=== PATIENT | male | born 1950 | race Caucasian/White ===

== ENCOUNTER 2019-08-11 12:01 | Inpatient (IN) | payer MEDICARE ==
[~2019-08-11] VITALS: Ht 180.3 cm; Wt 103.0 kg
[2019-08-11 12:05] VITALS: BP 116/79
--- NOTE | 2019-08-11 12:05 | NUR ---
ED Nurse Note: Pt brought in by ambulance c/o productive cough x 1 month. Pt states that his phlegm was green, but is now clear. Pt denies fever. A+Ox4, denies pain. Respirations even and unlabored on room air. Vitals stable as documented
[2019-08-11] MEDS ORDERED: Omnipaque-300 100ml vial INJ ONE (12:45)
--- NOTE | 2019-08-11 12:47 | Diagnostic Imaging Report ---
Indication: Dyspnea Comparison: None A single view chest radiograph was obtained. Findings: There is an abnormal density at the right lung base. This could be infiltrate or mass or loculated pleural fluid. Heart size is normal. Bones are unremarkable. IMPRESSION: Abnormal density at the right lung base. Further evaluation is recommended
--- NOTE | 2019-08-11 12:50 | NUR ---
ED Nurse Note: blood sent to lab
[2019-08-11 13:32] LABS: BASOPHILS % (AUTO) 0.7 % (0.0-2.0); EOSINOPHILS % (AUTO) 0.1 % (0.0-3.0); HEMATOCRIT 43.1 % (42.0-52.0); HEMOGLOBIN 14.3 G/DL (14.2-18.0); LYMPHOCYTES % (AUTO) 13.6 % (20.0-45.0); MEAN CORPUSCULAR VOLUME 93 FL (80-99); MONOCYTES % (AUTO) 7.2 % (1.0-10.0); NEUTROPHILS % (AUTO) 78.4 % (45.0-75.0); PLATELET COUNT 523 K/UL (150-450); RED BLOOD COUNT 4.62 M/UL (4.70-6.10); RED CELL DISTRIBUTION WIDTH 12.6 % (11.6-14.8); WHITE BLOOD COUNT 17.2 K/UL (4.8-10.8)
[2019-08-11 13:38] LABS: ANION GAP 13 mmol/L (5-15); BLOOD UREA NITROGEN 9 mg/dL (7-18); CALCIUM 9.2 MG/DL (8.5-10.1); CARBON DIOXIDE 29 MMOL/L (21-32); CHLORIDE 97 MMOL/L (98-107); CREATININE 0.7 MG/DL (0.55-1.30); POTASSIUM 4.5 MMOL/L (3.5-5.1); SODIUM 138 MMOL/L (136-145)
[2019-08-11 13:43] LABS: ALANINE AMINOTRANSFERASE 34 U/L (12-78); ALBUMIN 1.7 G/DL (3.4-5.0); ALBUMIN/GLOBULIN RATIO 0.3 (1.0-2.7); ALKALINE PHOSPHATASE 158 U/L (46-116); ASPARTATE AMINO TRANSFERASE 37 U/L (15-37); BILIRUBIN,TOTAL 0.4 MG/DL (0.2-1.0)
--- NOTE | 2019-08-11 13:51 | NUR ---
ED Nurse Note: Pt in radiology
--- NOTE | 2019-08-11 14:28 | Emergency Room Report ---
History of Present Illness General Chief Complaint: Upper Respiratory Illness Source: Patient (Paris Tejeda) Present Illness HPI 69 YO male presents to the ED c/o productive cough x 1 month with increased fatigue. He reports initially he had fevers and chills as well as his symptoms being much more severe. He reports fevers and chills resolved, and cough and fatigue improved only slightly. He reports hx tobacco use until the age of 37, when he then switched to smoking THC daily. He denies significant PMHX. other than mild gout which he has been attempting to control with dietary changes such as avoidance of ETOH. Pt. reports last physical exam was performed this past March by his primary care provider and was normal other than mild elevation in blood glucose and uric acid. He denies chest pain, swelling of the lower extremities, dizziness, syncope or MEYER. He reports frequently coughing up green thick sputum. Pt. reports pain with lying on his right side. (Paris Tejeda) Allergies: Coded Allergies: No Known Allergies (Unverified , 08/11/19) Patient History Past Medical History: see triage record Past Surgical History: none Pertinent Family History: none Social History: Reports: smoking Reviewed Nursing Documentation: PMH: Agreed; PSxH: Agreed (Paris Tejeda) Nursing Documentation-PMH Past Medical History: No Stated History (Paris Tejeda) Review of Systems All Other Systems: negative except mentioned in HPI (Paris Tejeda) Physical Exam Vital Signs Date Time Temp Pulse Resp B/P (MAP) Pulse Ox O2 Delivery O2 Flow Rate FiO2 08/11/19 11:56 98.4 81 18 116/79 (91) 98 Room Air Sp02 EP Interpretation: reviewed, normal General Appearance: no apparent distress, alert, GCS 15, non-toxic Head: normocephalic, atraumatic Eyes: bilateral eye normal inspection, bilateral eye PERRL ENT: hearing grossly normal, normal voice Neck: full range of motion Respiratory: chest non-tender, lungs clear, normal breath sounds, no respiratory distress, no accessory muscle use, no wheezing, speaking full sentences Cardiovascular #1: regular rate, rhythm Gastrointestinal: non tender, soft Neurologic: alert, motor strength/tone normal, oriented x3, sensory intact, responsive, speech normal Psychiatric: judgement/insight normal Skin: no rash Lymphatic: no adenopathy (Paris Tejeda) Medical Decision Making PA Attestation Dr. Ward is my supervising Physician whom patient management has been discussed with. (Paris Tejeda) Medicare Attestation Please note that the patient was also seen and evaluated by myself I do agree with the initial exam history and work-up Patient's x-ray had shown abnormal findings on CT imaging has been followed Patient will require further inpatient evaluation and care And further differentials for the findings on the CT (Kishore Dee DO) Diagnostic Impression: Primary Impression: Pneumonia Qualified Codes: J18.9 - Pneumonia, unspecified organism Additional Impression: Pulmonary mass ER Course 69 YO male presents to the ED c/o productive cough x 1 month with increased fatigue. He reports initially he had fevers and chills as well as his symptoms being much more severe. He reports fevers and chills resolved, and cough and fatigue improved only slightly. He reports hx tobacco use until the age of 37, when he then switched to smoking THC daily. He denies significant PMHX. other than mild gout which he has been attempting to control with dietary changes such as avoidance of ETOH. Pt. reports last physical exam was performed this past March by his primary care provider and was normal other than mild elevation in blood glucose and uric acid. He denies chest pain, swelling of the lower extremities, dizziness, syncope or MEYER. He reports frequently coughing up green thick sputum. Pt. reports pain with lying on his right side. Ddx considered but are not limited to URI, pneumonia, PE, strep pharyngitis, CHF , oncogenic etiology. Vital signs: Pt. is afebrile, the remaining VS are WNL H&PE are most consistent with URI Symptoms- no meningeal signs, oropharynx is not involved. ORDERS: -CBC: WBC's elevated at 17.5 - CMP: Unremarkable - BNP: elevated 270 - Troponin: 0.00 WNL -CK-MB: WNL - CK: WNL -Lipase: WNL -UA: WNL -Blood Cultures: Pending - Lactic Acid: WNL -CXR; abnormal RLL mass -CT Chest w. Contrast: Heterogeneous 8 cm mass at the right lung base with adjacent 4 cm and 5 cm mass lesions. There is centralized fluid with a few bubbles of air. The findings probably represent multiloculated/septated lung abscess; differential diagnosis is necrotic tumor. Please correlate clinically. Trace right pleural effusion with some loculation. Pulmonary emphysema/COPD " --- Per official radiology report- Please see report for specific details. ED INTERVENTIONS: -Zosyn IVPB - DISPOSITION: at this time pt. will be admitted to Dr. Xie for PNA/ Pulmonary mass. Dr. Xie agreed to admit the pt. and to continue pt. care management. (Paris Tejeda) EKG Diagnostic Results EP Interpretation: Dr. Ward Rate: normal - 81 Rhythm: NSR ST Segments: no acute changes ASA given to the pt in ED: No PA Scribe Text This Interpretation was scribed by RON Tejeda. (Paris Tejeda) Chest X-Ray Diagnostic Results Chest X-Ray Diagnostic Results : Chest X-Ray Ordered: Yes # of Views/Limited/Complete: 1 View Indication: Shortness of Breath PA Xray: Interpretation reviewed, by supervising MD, and agrees with findings. Interpretation: no effusion, no pneumothorax Impression: Other - abnormal: RLL Mass (Paris Tejeda) CT/MRI/US Diagnostic Results CT/MRI/US Diagnostic Results : Imaging Test Ordered: CT Chest With IV Contrast Impression " Heterogeneous 8 cm mass at the right lung base with adjacent 4 cm and 5 cm mass lesions. There is centralized fluid with a few bubbles of air. The findings probably represent multiloculated/septated lung abscess; differential diagnosis is necrotic tumor. Please correlate clinically. Trace right pleural effusion with some loculation. Pulmonary emphysema/COPD " --- Per official radiology report- Please see report for specific details. (Paris Tejeda) Last Vital Signs Date Time Temp Pulse Resp B/P (MAP) Pulse Ox O2 Delivery O2 Flow Rate FiO2 08/11/19 12:05 98.4 80 18 116/79 98 Room Air (Paris Tejeda) Disposition: ADMITTED INPATIENT Condition: Serious Paris Tejeda Aug 11, 2019 14:28 Kishore Dee DO Aug 11, 2019 15:56
[2019-08-11 14:47] LABS: BILIRUBIN, URINE NEGATIVE (NEGATIVE); COLOR,URINE PALE YELLOW; GLUCOSE, URINE (UA) NEGATIVE (NEGATIVE); KETONES,URINE NEGATIVE (NEGATIVE); LEUKOCYTE ESTERASE ,URINE NEGATIVE (NEGATIVE); NITRITE,URINE NEGATIVE (NEGATIVE); PH,URINE 7 (4.5-8.0); PROTEIN,URINE NEGATIVE (NEGATIVE); UROBILINOGEN,URINE NORMAL MG/DL (0.0-1.0)
[2019-08-11 14:48] LABS: APPEARANCE,URINE CLEAR
[2019-08-11 15:00] VITALS: BP 124/74
[2019-08-11] MEDS ORDERED: Piperacillin/Tazobactam 3.375 GM in NS 110 ML IVPB ONE (15:15)
--- NOTE | 2019-08-11 15:24 | Diagnostic Imaging Report ---
Indication: Abnormal chest x-ray. Technique: Continuous helical transaxial imaging of the chest was obtained from the thoracic inlet to the upper abdomen after intravenous nonionic contrast administration. Coronal 2-D reformats were also obtained. Automatic Exposure Control was utilized. Total Dose length Product (DLP): [address] Dose Index Volume (CTDIvol): 150.6 mGy Comparison: none Findings: There is a heterogeneous, partially fluid-filled mass measuring 8 cm at the right lung base corresponding to the radiographic density seen earlier. There is the suggestion of multiple septations within the mass and a few bubbles of air suggesting multiloculated lung abscess. Trace right pleural fluid demonstrated posteriorly. The main collection measures about 8 cm. There are 2 additional collections in the posterior sulcus measuring 4 cm x 5 cm respectively. Differential diagnosis is necrotic tumor. Please correlate clinically. Small focus of loculated fluid also noted superiorly in within the minor fissure (fissural fluid). There is no consolidation. The remainder of the lungs are clear. There is hyperlucency in the lungs bilaterally especially in the upper lung gonzalez consistent with COPD and emphysema. There are small lymph nodes within the mediastinum nonspecific. The axilla appear clear. The heart, aorta and pulmonary artery appear unremarkable. Hiatal hernia is noted. The visualized part of the upper abdomen is unremarkable. IMPRESSION: Heterogeneous 8 cm mass at the right lung base with adjacent 4 cm and 5 cm mass lesions. There is centralized fluid with a few bubbles of air. The findings probably represent multiloculated/septated lung abscess; differential diagnosis is necrotic tumor. Please correlate clinically. Trace right pleural effusion with some loculation. Pulmonary emphysema/COPD The CT scanner at [facility] is accredited by the [employer] and the scans are performed using dose optimization techniques as appropriate to a performed exam including Automatic Exposure control.
[2019-08-11 15:53] LABS: CKMB 0.4 NG/ML (0.0-3.6)
[2019-08-11 17:15] VITALS: BP 130/73
--- NOTE | 2019-08-11 18:19 | NUR ---
ED Nurse Note: Pt sitting up in bed eating dinner.
--- NOTE | 2019-08-11 18:35 | NUR ---
ED Nurse Note: Report given to Min, RN in 2E.
--- NOTE | 2019-08-11 18:55 | NUR ---
ED Nurse Note: Pt transferred safely to 2E on monitor.
--- NOTE | 2019-08-11 19:44 | NUR ---
HAND-OFF: Report given to Veto MCLEAN. Pt remains stable.
--- NOTE | 2019-08-11 19:45 | NUR ---
NURSE NOTES: Received report from Faby Smith RN at [facility]. Pt is a new admission. NO s.s of acute distress noted. VSS. Belongings list verifierd any signed by both nurses. Placed on alarm security or surveillance monitor. Pt oriented on the unit. Addendum: 08/12/19 at 0020 by MONICA ARROYO RN Pt denies any home meds. Has a hx of arthritis only per pt.
--- NOTE | 2019-08-11 20:00 | NUR ---
NURSE NOTES: Called and notified MD Max about new admission. MD orders noted. Will follow new orders.
[2019-08-11 21:57] VITALS: BP 128/69
[2019-08-11] MEDS: Piperacillin/Tazobactam 3.375 GM in NS 110 ML IVPB SCH (22:28)
[2019-08-12] VITALS: BP 116/72
[2019-08-12] MEDS: Acetaminophen 500mg (ES) tab ORAL PRN ×2 (00:12→22:39)
[2019-08-12] MEDS: Vancomycin 1.25gm/NS Premix q24h IVPB SCH ×3 (02:24→17:52)
[2019-08-12 04:00] VITALS: BP 106/66
[2019-08-12] MEDS: Piperacillin/Tazobactam 3.375 GM in NS 110 ML IVPB SCH ×3 (05:30→21:30)
--- NOTE | 2019-08-12 06:44 | Consultation ---
History of Present Illness General Chief Complaint: Upper Respiratory Illness Present Illness Allergies: Coded Allergies: No Known Allergies (Unverified , 08/11/19) Patient History Healthcare decision maker Resuscitation status Full Code Advanced Directive on File Physical Exam Last 24 Hour Vital Signs Date Time Temp Pulse Resp B/P (MAP) Pulse Ox O2 Delivery O2 Flow Rate FiO2 08/12/19 04:00 97.6 74 18 106/66 (79) 97 08/12/19 04:00 85 08/12/19 00:00 98.0 81 16 116/72 (87) 93 08/12/19 00:00 86 08/11/19 21:57 98.6 88 18 128/69 (88) 92 08/11/19 20:10 Room Air 08/11/19 20:00 85 08/11/19 18:55 97.9 81 18 128/71 96 Room Air 08/11/19 17:15 98.0 84 18 130/73 98 Room Air 08/11/19 15:00 98.2 89 18 124/74 98 Room Air 08/11/19 12:05 98.4 80 18 116/79 98 Room Air 08/11/19 12:05 80 18 Room Air 08/11/19 11:56 98.4 81 18 116/79 (91) 98 Room Air Laboratory Tests Test 08/11/19 12:50 08/11/19 14:25 White Blood Count 17.2 K/UL (4.8-10.8) H Red Blood Count 4.62 M/UL (4.70-6.10) L Hemoglobin 14.3 G/DL (14.2-18.0) Hematocrit 43.1 % (42.0-52.0) Mean Corpuscular Volume 93 FL (80-99) Mean Corpuscular Hemoglobin 30.9 PG (27.0-31.0) Mean Corpuscular Hemoglobin Concent 33.2 G/DL (32.0-36.0) Red Cell Distribution Width 12.6 % (11.6-14.8) Platelet Count 523 K/UL (150-450) H Mean Platelet Volume 6.0 FL (6.5-10.1) L Neutrophils (%) (Auto) 78.4 % (45.0-75.0) H Lymphocytes (%) (Auto) 13.6 % (20.0-45.0) L Monocytes (%) (Auto) 7.2 % (1.0-10.0) Eosinophils (%) (Auto) 0.1 % (0.0-3.0) Basophils (%) (Auto) 0.7 % (0.0-2.0) Sodium Level 138 MMOL/L (136-145) Potassium Level 4.5 MMOL/L (3.5-5.1) Chloride Level 97 MMOL/L (98-107) L Carbon Dioxide Level 29 MMOL/L (21-32) Anion Gap 13 mmol/L (5-15) Blood Urea Nitrogen 9 mg/dL (7-18) Creatinine 0.7 MG/DL (0.55-1.30) Estimat Glomerular Filtration Rate > 60 mL/min (>60) Glucose Level 102 MG/DL (74-106) Calcium Level 9.2 MG/DL (8.5-10.1) Total Bilirubin 0.4 MG/DL (0.2-1.0) Aspartate Amino Transf (AST/SGOT) 37 U/L (15-37) Alanine Aminotransferase (ALT/SGPT) 34 U/L (12-78) Alkaline Phosphatase 158 U/L (46-116) H Total Creatine Kinase 49 U/L (26-308) Creatine Kinase MB 0.4 NG/ML (0.0-3.6) Creatine Kinase MB Relative Index 0.8 Troponin I 0.000 ng/mL (0.000-0.056) Pro-B-Type Natriuretic Peptide 270 pg/mL (0-125) H Total Protein 8.1 G/DL (6.4-8.2) Albumin 1.7 G/DL (3.4-5.0) L Globulin 6.4 g/dL Albumin/Globulin Ratio 0.3 (1.0-2.7) L Lipase 155 U/L (73-393) Urine Color Pale yellow Urine Appearance Clear Urine pH 7 (4.5-8.0) Urine Specific Premont 1.010 (1.005-1.035) Urine Protein Negative (NEGATIVE) Urine Glucose (UA) Negative (NEGATIVE) Urine Ketones Negative (NEGATIVE) Urine Blood Negative (NEGATIVE) Urine Nitrite Negative (NEGATIVE) Urine Bilirubin Negative (NEGATIVE) Urine Urobilinogen Normal MG/DL (0.0-1.0) Urine Leukocyte Esterase Negative (NEGATIVE) Lactic Acid Level 1.10 mmol/L (0.4-2.0) Height (Feet): 5 Height (Inches): 11.00 Weight (Pounds): 227 Medications Current Medications Medications (Trade) Dose Ordered Sig/Yo Route PRN Reason Start Time Stop Time Status Last Admin Dose Admin Acetaminophen (Tylenol) 500 mg Q4H PRN ORAL Mild Pain/Temp > 100.5 08/11/19 20:30 09/10/19 20:29 08/12/19 00:12 Piperacillin Sod/ Tazobactam Sod 3.375 gm/Sodium Chloride 110 ml @ 27.5 mls/hr EVERY 8 HOURS IVPB 08/11/19 22:00 08/16/19 21:59 08/12/19 05:30 Vancomycin HCl (Vanco rx to dose) 1 ea DAILY PRN MISC Per rx protocol 08/11/19 21:00 09/10/19 20:59 Vancomycin/Sodium Chloride 275 ml @ 183.333 mls/hr Q8H IVPB 08/12/19 02:00 08/17/19 01:59 08/12/19 02:24 Assessment/Plan Assessment/Plan: Hematology/Oncology Consultation Chief Complaint: Upper Respiratory Illness RFC: Lung abscess v mass REQ MD: Cecilio Xie DOS: 08/12/19 HPI 69 YO male presents to the ED c/o productive cough x 1 month with increased fatigue. He reports initially he had fevers and chills as well as his symptoms being much more severe. He reports fevers and chills resolved, and cough and fatigue improved only slightly. He reports hx tobacco use until the age of 37, when he then switched to smoking THC daily. He denies significant PMHX. other than mild gout which he has been attempting to control with dietary changes such as avoidance of ETOH. Pt. reports last physical exam was performed this past March by his primary care provider and was normal other than mild elevation in blood glucose and uric acid. He denies chest pain, swelling of the lower extremities, dizziness, syncope or MEYER. He reports frequently coughing up green thick sputum. Pt. reports pain with lying on his right side. On presentation, noted to have a lung abscess v mass, and oncology was consulted for eval and rx, have discussed the case with Miller Flores in the am Allergies: Coded Allergies: No Known Allergies (Unverified , 08/11/19) Patient History Past Medical History: see triage record Past Surgical History: none Pertinent Family History: none Social History: Reports: smoking++ stopped smoking in the past, also has been sober, used to be an alcoholic Reviewed Nursing Documentation: PMH: Agreed; PSxH: Agreed Nursing Documentation-PMH Past Medical History: No Stated History Review of Systems All Other Systems: negative except mentioned in HPI Physical Exam General: no apparent distress, alert, GCS 15, non-toxic Heent: normocephalic, atraumatic hearing grossly normal, normal voice Neck: full range of motion Resp: chest non-tender, lungs clear, normal breath sounds, no respiratory distress Cardiovascular: regular rate, rhythm, no mgr Gastrointestinal: non tender, soft Neurologic: alert, motor strength/tone normal, oriented x3, sensory intact, responsive, speech normal Psychiatric: judgement/insight normal Skin: no rash Lymphatic: no adenopathy Labs: noted Imaging: reviewed Assessment and Recs: # Heterogeneous 8 cm mass at the right lung base with adjacent 4 cm and 5 cm mass lesions. There is centralized fluid with a few bubbles of air. The findings probably represent multiloculated/septated lung abscess; differential diagnosis is necrotic tumor. Please correlate clinically. Trace right pleural effusion with some loculation. --> is on broad spectrum abx as per id --> id recs appreciated --> will need to obtain potential ct surg --> may need abscess drainage # Leukocytosis likely due to lung abscess --> peripheral smear is noted --> no bleeding report --> monitor for stress reaction --> continue abx per id # Thrombocytosis likely reactive process --> smear noted # Protein caloric malnutrition --> alb is low, replete with ensure, nutrition recs as needed # Pulmonary emphysema/COPD " --- Per official radiology report- Please see report for specific details. --> as per pulm # Pneumonia --> per id abx Appreciate consultation and dw Jarret Quintero MD Aug 12, 2019 06:44
[2019-08-12] MEDS ORDERED: Omnipaque-300 100ml vial INJ PRN (06:45)
--- NOTE | 2019-08-12 07:20 | NUR ---
HAND-OFF: Report given to Cindy Cox RN.
[2019-08-12 07:47] LABS: BASOPHILS % (AUTO) 0.9 % (0.0-2.0); EOSINOPHILS % (AUTO) 0.6 % (0.0-3.0); HEMATOCRIT 38.7 % (42.0-52.0); HEMOGLOBIN 12.7 G/DL (14.2-18.0); LYMPHOCYTES % (AUTO) 15.3 % (20.0-45.0); MEAN CORPUSCULAR VOLUME 93 FL (80-99); MONOCYTES % (AUTO) 6.8 % (1.0-10.0); NEUTROPHILS % (AUTO) 76.4 % (45.0-75.0); PLATELET COUNT 503 K/UL (150-450); RED BLOOD COUNT 4.15 M/UL (4.70-6.10); RED CELL DISTRIBUTION WIDTH 12.3 % (11.6-14.8)
[2019-08-12 08:00] VITALS: BP 118/71
[2019-08-12 08:03] LABS: ALANINE AMINOTRANSFERASE 35 U/L (12-78); ALBUMIN 1.3 G/DL (3.4-5.0); ALBUMIN/GLOBULIN RATIO 0.2 (1.0-2.7); ALKALINE PHOSPHATASE 131 U/L (46-116); ANION GAP 10 mmol/L (5-15); ASPARTATE AMINO TRANSFERASE 35 U/L (15-37); BILIRUBIN,TOTAL 0.3 MG/DL (0.2-1.0); BLOOD UREA NITROGEN 7 mg/dL (7-18); CALCIUM 8.7 MG/DL (8.5-10.1); CARBON DIOXIDE 27 MMOL/L (21-32); CHLORIDE 102 MMOL/L (98-107); CREATININE 0.7 MG/DL (0.55-1.30); POTASSIUM 4.1 MMOL/L (3.5-5.1); SODIUM 139 MMOL/L (136-145)
--- NOTE | 2019-08-12 08:34 | NUR ---
NURSE NOTES: Received patient from Sandra Coy. Patient is awake and alert. No complain of pain or discomfort at this time. Patient NPO for CT abdomen today to r/o abdominal abscess. Call emanuel within patients reach will follow.
--- NOTE | 2019-08-12 10:30 | Diagnostic Imaging Report ---
INDICATION: Abdominal pain TECHNIQUE: Continuous helical transaxial imaging of the abdomen and pelvis was obtained from the lung bases to the pubic symphysis during intravenous contrast administration. Coronal 2-D reformats were also obtained. Study obtained in a Siemens sensation [address] Automatic Exposure Control was utilized. Total Dose length Product (DLP): 688.[address] Dose Index Volume (CTDIvol): 12.5 mGy COMPARISON: None FINDINGS: Lungs: Please refer to the recently dictated CT chest 08/11/2019.. Liver: Unremarkable Gallbladder/biliary system: There is a suggestion of gallbladder stones versus sludge in the dependent part of the gallbladder.. Spleen: Unremarkable Pancreas: Unremarkable Kidneys/Bladder: Punctate nonobstructive stone initiated within the left kidney. Suggestion of a small right renal cyst in the lower pole noted. There is no hydronephrosis. Urinary bladder is unremarkable.. Adrenal glands: Unremarkable Aorta/IVC: Mild calcification of aorta and iliac arteries noted. There is no aneurysm. Bowel: There is no evidence of bowel obstruction. Appendix is normal. Peritoneum: There is no free fluid. Bones: There is narrowing of intervertebral discs and accompanying endplate osteophyte formation. Hypertrophied facet joints also demonstrated. IMPRESSION: Tiny nonobstructive stone in left kidney. Suggestion of sludge versus small stones in the gallbladder. Hiatal hernia Degenerative changes of the spine The CT scanner at [facility] is accredited by the [employer] and the scans are performed using dose optimization techniques as appropriate to a performed exam including Automatic Exposure control.
[2019-08-12 12:00] VITALS: BP 116/67
[2019-08-12] MEDS ORDERED: Lidocaine 1% Plain 30 ml INJ PRN (14:15)
[2019-08-12 16:00] VITALS: BP 119/63
--- NOTE | 2019-08-12 16:00 | Consultation ---
DATE OF CONSULTATION: 08/12/2019 INFECTIOUS DISEASE CONSULTATION CONSULTING PHYSICIAN: Emre Moura M.D. PRIMARY ATTENDING: Kishore Max M.D. REASON FOR CONSULT: Lung abscess. HISTORY OF PRESENT ILLNESS: This is a 69-year-old white male admitted yesterday from home complaining of productive cough for 1 month. The patient states that around 1 month ago, he had strained ankle and he stayed on the bed for couple of days because he could not move. After that, he got some pneumonia or cold and still has productive cough. He is also complaining of weakness and weight loss of 20 pounds in the last month. He states that he may have low-grade fever at home. ALLERGIES: No known drug allergies. MEDICATIONS: Getting vancomycin and Zosyn and Tylenol. PAST MEDICAL HISTORY: Has some arthritis. Had mild gout. SOCIAL HISTORY: Ex-smoker. Now smokes cannabis. Quit drinking 5 months ago. He is single, has no child. REVIEW OF SYSTEMS: As per history of present illness. Has weakness, productive cough, weight loss. No chest pain. No nausea. No vomiting. No problem passing urine. PHYSICAL EXAMINATION: VITAL SIGNS: Temperature 98.2, pulse 76, blood pressure 116/67. GENERAL APPEARANCE: No acute distress. Well developed. HEAD AND NECK: Has denture and remaining teeth are capped. LUNGS: Clear. ABDOMEN: Soft, nontender. HEART: Normal rate. EXTREMITIES: Has no edema. NEUROLOGIC: Awake, alert, oriented x3. LABORATORY AND DIAGNOSTIC DATA: Sodium 139, potassium 4.1, chloride 102, bicarbonate 27, BUN 7, creatinine 0.7, glucose is 121. WBC at the time of admission was 17.2, currently is 15 K, hemoglobin 12.7, hematocrit 38.7, platelets is 503. UA was negative. Chest CT showed evidence of COPD, emphysema, and heterogeneous 8 cm mass at the base of the right lung with centralized fluid, few bubbles of air probably multiloculated septated lung abscess. Differential diagnosis is necrotic tumour, trace mild pleural effusion. The patient had CT scan of the abdomen and pelvis that showed nonobstructive punctuated stone in the left kidney. No hydronephrosis. IMPRESSION: Lung abscess. The patient also had COPD, emphysema. He is an ex-smoker. Has thrombocytosis. RECOMMENDATION: Continue Zosyn and vancomycin. Sputum culture was ordered. We will suggest CT-guided drainage of abscess. We will follow up the cultures. At the end of my exam, I thank Dr. Max for involving me in the care of this patient. Emre Moura M.D. DR: REJI JOB#: [id number] CC: MONIKA
--- NOTE | 2019-08-12 19:00 | NUR ---
NURSE NOTES: Received report from VINAY White. Patient is awake, lying in semi maradiaga's; resting comfortably. A/Ox4. Denies pain at this time. Checked IV site and flushed. No erythema, bleeding or infiltration noted. Bed at lowest position, brakes on, siderailsx3. Call light within reach. Will continue to monitor.
--- NOTE | 2019-08-12 19:51 | NUR ---
HAND-OFF: Report given to Sandra Marin. Plan of care endorsed.
[2019-08-12 20:00] VITALS: BP 102/63
--- NOTE | 2019-08-12 21:15 | Consultation ---
DATE OF CONSULTATION: 08/12/2019 PULMONARY CONSULTATION CONSULTING PHYSICIAN: Kun Park M.D. HISTORY OF PRESENT ILLNESS: This is a 69-year-old male who came to the hospital with cough and shortness of breath. The patient reported fevers as well which is now resolved. He has a previous history of tobacco use and admits to current marijuana use. He reports previous history of gout. The patient was seen and admitted to the hospital. He also reports cough with phlegm production. The patient has been seen by Infectious Disease specialist and a diagnosis of lung abscess has been obtained. The patient has been started on Zosyn and vancomycin. PAST MEDICAL HISTORY: Notable for gout, ex-smoker, possible underlying COPD, has been an alcohol user in the past as well. REVIEW OF SYSTEMS: He denies any headache, hematemesis, melena, hematochezia, night sweats, or weight loss. PHYSICAL EXAMINATION: GENERAL: Reveals a 69-year-old male. HEENT: Unremarkable. LUNGS: Clear breath sounds bilaterally. ABDOMEN: Soft. There is no edema. LABORATORY AND DIAGNOSTIC DATA: Lab testing is notable for white count of 15,000, hemoglobin 12.7, and platelet count is 500,000. Chemistries are normal. Urinalysis is negative. Imaging studies, a chest CT was obtained, which has shown multiloculated right lung abscess. There is also evidence for COPD. The patient underwent abdomen and pelvis CT, which was negative. X-ray of chest confirmed the abnormality seen on the right lung base. IMPRESSION: 1. Right lung abscess, suspect due to poor oral hygiene/dental caries. 2. COPD. DISCUSSION: Agree with the use of broad-spectrum antibiotics. Agree with a consideration for a CT-guided biopsy as per ID. We will follow as court recording monitor. Kun Park M.D. DR: KATARZYNA JOB#: [id number] CC:
--- NOTE | 2019-08-12 22:20 | NUR ---
NURSE NOTES: Seen and examined by Dr. Fox, no new orders at this time.
[2019-08-13] VITALS (20 sets, daily range): BP systolic 101–137; BP diastolic 61–91
--- NOTE | 2019-08-13 | History and Physical Report ---
DATE OF ADMISSION: 08/11/2019 HISTORY OF PRESENT ILLNESS: The patient is admitted for pneumonia and dyspnea. The patient comes in because of shortness of breath, possible lung abscess/mass. Also, leukocytosis. The patient had also weakness and presyncopal episode, productive cough, greenish in color, shortness of breath for about a month off and on. The patient was admitted for pneumonia as well as dyspnea, rule out lung abscess. The patient denies chest pain. Denies nausea, vomiting, or diarrhea. Denies heartburn. Denies orthopnea. PAST MEDICAL HISTORY: GERD. PAST SURGICAL HISTORY: Tonsillectomy. ALLERGIES: No known allergies. SOCIAL HISTORY: Denies history of alcohol abuse. Does have history of marijuana use. Does have history of smoking. REVIEW OF SYSTEMS: HEENT: Denies headaches. RESPIRATORY: Reports shortness of breath. Does have productive cough for about a month. Denies wheezing. CARDIOVASCULAR: Denies chest pain. No orthopnea. GASTROINTESTINAL: Denies nausea, vomiting, or diarrhea. EXTREMITIES: Denies pain. CENTRAL NERVOUS SYSTEM: Denies any change in speech pattern, but does have presyncopal episode and weakness, however, no syncope. PHYSICAL EXAMINATION: VITAL SIGNS: Temperature is 98, pulse is 86, blood pressure 116/72. HEENT: PERRLA. NECK: Supple. No lymphadenopathy. CHEST: Clear to auscultation. CARDIOVASCULAR: Regular rate and rhythm. No murmurs or extra sounds. GASTROINTESTINAL: Soft, nontender, nondistended. No organomegaly. EXTREMITIES: No edema. Moves all four extremities. Sensory intact to light touch. Reflexes equal on both sides. Chest x-ray shows possible lung abscess versus mass. LABORATORY DATA: WBC of 17.3, hemoglobin 14.3, platelets 523. Sodium 138, potassium 4.5, BUN of 9, creatinine 0.7, glucose of 102. ASSESSMENT AND PLAN: Lung abscess versus mass versus pneumonia, leukocytosis, shortness of breath. I have asked basically Dr. Randy Fox, Dr. Jarret Quintanilla, Dr. Kun Park, and Dr. Emre Moura for the management of above-mentioned diagnoses, abnormalities, and symptoms. Dr. Fox has been consulted in case surgical intervention needs to be done for this finding on the chest x-ray. Ali Aylin Max DR: MAKENZIE JOB#: [id number] CC:
--- NOTE | 2019-08-13 | NUR ---
NURSE NOTES: Patient was placed on NPO.
[2019-08-13] MEDS: Vancomycin 1.25gm/NS Premix q24h IVPB SCH ×3 (02:05→18:37)
[2019-08-13] MEDS: Piperacillin/Tazobactam 3.375 GM in NS 110 ML IVPB SCH ×3 (05:22→21:00)
--- NOTE | 2019-08-13 07:00 | NUR ---
HAND-OFF: Report given to VINAY White. Plan of care endorsed.
--- NOTE | 2019-08-13 07:44 | NUR ---
NURSE NOTES: Received patient from Sandra Marin. Patient is awake and alert laying comfortably in bed. No complain of pain or discomfort. No complain of pain or discomfort. Patient NPO for Ct drainage today. Fall precautions in place. Encouraged use of call emanuel that is within the patients reach. will follow.
[2019-08-13] MEDS ORDERED: D5NS 1,000 ML IV SCH (08:15)
[2019-08-13 09:26] LABS: INR 1.1 (0.9-1.1)
--- NOTE | 2019-08-13 10:31 | General Progress Note ---
Assessment/Plan Problem List: (1) Pneumonia ICD Codes: J18.9 - Pneumonia, unspecified organism SNOMED: [id number] Qualifiers: Qualified Codes: J18.9 - Pneumonia, unspecified organism (2) Pulmonary mass ICD Codes: R91.8 - Other nonspecific abnormal finding of lung field SNOMED: 991652443 Status: progressing Assessment/Plan: afebrile no sob lung mass pna abx per id continue iv abx will discuss w bilingual sales consultant re w/u lung mass Subjective ROS Limited/Unobtainable: Yes Allergies: Coded Allergies: No Known Allergies (Unverified , 08/11/19) Objective Last 24 Hour Vital Signs Date Time Temp Pulse Resp B/P (MAP) Pulse Ox O2 Delivery O2 Flow Rate FiO2 08/13/19 08:00 98.4 72 18 124/74 (91) 94 08/13/19 04:00 72 08/13/19 04:00 97.4 66 18 103/65 (78) 96 08/13/19 00:00 97.5 60 16 101/61 (74) 95 08/12/19 23:09 97.9 08/12/19 21:00 Room Air 08/12/19 20:00 97.7 56 16 102/63 (76) 97 08/12/19 20:00 78 08/12/19 16:00 97.9 76 20 119/63 (81) 95 08/12/19 16:00 77 08/12/19 12:00 98.2 76 20 116/67 (83) 93 08/12/19 12:00 75 Intake and Output 08/12/19 08/13/19 19:00 07:00 Intake Total 740 ml Output Total 1400 ml 2100 ml Balance -660 ml -2100 ml Intake Oral 740 ml Output Urine Total 1400 ml 2100 ml Stool Total 0 ml # Bowel Movements 1 Laboratory Tests 08/13/19 00:50: Vancomycin Level Trough 13.8H 08/13/19 08:15: Prothrombin Time 12.0H, Prothromb Time International Ratio 1.1, Activated Partial Thromboplast Time 32 Height (Feet): 5 Height (Inches): 11.00 Weight (Pounds): 227 Neck: supple Respiratory/Chest: lungs clear Abdomen: soft Kishore Max MD Aug 13, 2019 10:31
--- NOTE | 2019-08-13 10:44 | Pulmonology Progress Note ---
Assessment/Plan Assessment/Plan IMPRESSION: 1. Right lung abscess, suspect due to poor oral hygiene/dental caries. 2. COPD. DISCUSSION: Agree with the use of broad-spectrum antibiotics. Agree with a consideration for a CT-guided biopsy as per ID. Discussed with radiologist. I will follow as project systems engineer. Kun Park M.D. Subjective Interval Events: None new Constitutional: Reports: no symptoms HEENT: Repors: no symptoms Respiratory: Reports: no symptoms Cardiovascular: Reports: no symptoms Gastrointestinal/Abdominal: Reports: no symptoms Allergies: Coded Allergies: No Known Allergies (Unverified , 08/11/19) Objective Last 24 Hour Vital Signs Date Time Temp Pulse Resp B/P (MAP) Pulse Ox O2 Delivery O2 Flow Rate FiO2 08/13/19 08:00 98.4 72 18 124/74 (91) 94 08/13/19 04:00 72 08/13/19 04:00 97.4 66 18 103/65 (78) 96 08/13/19 00:00 97.5 60 16 101/61 (74) 95 08/12/19 23:09 97.9 08/12/19 21:00 Room Air 08/12/19 20:00 97.7 56 16 102/63 (76) 97 08/12/19 20:00 78 08/12/19 16:00 97.9 76 20 119/63 (81) 95 08/12/19 16:00 77 08/12/19 12:00 98.2 76 20 116/67 (83) 93 08/12/19 12:00 75 Intake and Output 08/12/19 08/13/19 19:00 07:00 Intake Total 740 ml Output Total 1400 ml 2100 ml Balance -660 ml -2100 ml Intake Oral 740 ml Output Urine Total 1400 ml 2100 ml Stool Total 0 ml # Bowel Movements 1 General Appearance: no acute distress HEENT: normocephalic Respiratory/Chest: chest wall non-tender, lungs clear Cardiovascular: normal peripheral pulses Abdomen: normal bowel sounds Microbiology Date/Time Source Procedure Growth Status 08/11/19 14:25 Blood Blood Culture - Preliminary NO GROWTH AFTER 24 HOURS Resulted 08/11/19 14:10 Blood Blood Culture - Preliminary NO GROWTH AFTER 24 HOURS Resulted 08/12/19 20:30 Sputum Expectorated Gram Stain - Final Resulted 08/12/19 20:30 Sputum Expectorated Sputum Culture Pending Resulted Laboratory Tests 08/13/19 00:50: Vancomycin Level Trough 13.8H 08/13/19 08:15: Prothrombin Time 12.0H, Prothromb Time International Ratio 1.1, Activated Partial Thromboplast Time 32 Current Medications Medications (Trade) Dose Ordered Sig/Yo Route PRN Reason Start Time Stop Time Status Last Admin Dose Admin Acetaminophen (Tylenol) 500 mg Q4H PRN ORAL Mild Pain/Temp > 100.5 08/11/19 20:30 09/10/19 20:29 08/12/19 22:39 Barium Sulfate (Readi-Cat 2) 450 ml NOW PRN ORAL Radiology Procedure 08/12/19 06:45 08/14/19 06:40 Dextrose/Sodium Chloride 1,000 ml @ 70 mls/hr [id number] IV 08/13/19 08:15 09/12/19 08:14 08/13/19 08:15 Iohexol (OMNIPAQUE-300 100ml) 100 ml NOW PRN INJ Radiology Procedure 08/12/19 06:45 08/14/19 06:40 Lidocaine HCl (Xylocaine 1% 30ml) 30 ml ONCE PRN INJ cath placement 08/12/19 14:15 08/14/19 23:59 Piperacillin Sod/ Tazobactam Sod 3.375 gm/Sodium Chloride 110 ml @ 27.5 mls/hr EVERY 8 HOURS IVPB 08/11/19 22:00 08/16/19 21:59 08/13/19 05:22 Vancomycin HCl (Vanco rx to dose) 1 ea DAILY PRN MISC Per rx protocol 08/11/19 21:00 09/10/19 20:59 Vancomycin/Sodium Chloride 275 ml @ 183.333 mls/hr Q8H IVPB 08/12/19 02:00 08/17/19 01:59 08/13/19 09:34 Kun Park MD Aug 13, 2019 10:44
--- NOTE | 2019-08-13 12:30 | Infectious Diseases Prog Note ---
Assessment/Plan Assessment/Plan IMPRESSION: Lung abscess. COPD, Emphysema. Thrombocytosis. RECOMMENDATION: Continue Zosyn and vancomycin. Sputum culture result is pending will have CT-guided drainage of abscess today Subjective ROS Limited/Unobtainable: No Constitutional: Reports: no symptoms Respiratory: Reports: shortness of breath, productive cough Cardiovascular: Reports: no symptoms Gastrointestinal/Abdominal: Reports: no symptoms, other - NPO Genitourinary: Reports: no symptoms Allergies: Coded Allergies: No Known Allergies (Unverified , 08/11/19) Objective Vital Signs Last 24 Hour Vital Signs Date Time Temp Pulse Resp B/P (MAP) Pulse Ox O2 Delivery O2 Flow Rate FiO2 08/13/19 11:51 97.7 67 18 116/69 (85) 94 08/13/19 09:00 Room Air 08/13/19 08:00 98.4 72 18 124/74 (91) 94 08/13/19 08:00 74 08/13/19 04:00 72 08/13/19 04:00 97.4 66 18 103/65 (78) 96 08/13/19 00:00 97.5 60 16 101/61 (74) 95 08/12/19 23:09 97.9 08/12/19 21:00 Room Air 08/12/19 20:00 97.7 56 16 102/63 (76) 97 08/12/19 20:00 78 08/12/19 16:00 97.9 76 20 119/63 (81) 95 08/12/19 16:00 77 Height (Feet): 5 Height (Inches): 11.00 Weight (Pounds): 227 General Appearance: no acute distress HEENT: mucous membranes moist Respiratory/Chest: decreased breath sounds, other - Oxygen by nasal cannula Cardiovascular: normal rate Abdomen: soft, non tender Extremities: other - mild legs edema Neurologic/Psychiatric: alert, oriented x 3, responsive Microbiology Date/Time Source Procedure Growth Status 08/11/19 14:25 Blood Blood Culture - Preliminary NO GROWTH AFTER 24 HOURS Resulted 08/11/19 14:10 Blood Blood Culture - Preliminary NO GROWTH AFTER 24 HOURS Resulted 08/12/19 20:30 Sputum Expectorated Gram Stain - Final Resulted 08/12/19 20:30 Sputum Expectorated Sputum Culture Pending Resulted Laboratory Tests Test 08/13/19 00:50 08/13/19 08:15 Vancomycin Level Trough 13.8 ug/mL (5.0-12.0) H Prothrombin Time 12.0 SEC (9.30-11.50) H Prothromb Time International Ratio 1.1 (0.9-1.1) Activated Partial Thromboplast Time 32 SEC (23-33) Current Medications Medications (Trade) Dose Ordered Sig/Yo Route PRN Reason Start Time Stop Time Status Last Admin Dose Admin Acetaminophen (Tylenol) 500 mg Q4H PRN ORAL Mild Pain/Temp > 100.5 08/11/19 20:30 09/10/19 20:29 08/12/19 22:39 Barium Sulfate (Readi-Cat 2) 450 ml NOW PRN ORAL Radiology Procedure 08/12/19 06:45 08/14/19 06:40 Dextrose/Sodium Chloride 1,000 ml @ 70 mls/hr [id number] IV 08/13/19 08:15 09/12/19 08:14 08/13/19 08:15 Iohexol (OMNIPAQUE-300 100ml) 100 ml NOW PRN INJ Radiology Procedure 08/12/19 06:45 08/14/19 06:40 Lidocaine HCl (Xylocaine 1% 30ml) 30 ml ONCE PRN INJ cath placement 08/12/19 14:15 08/14/19 23:59 Piperacillin Sod/ Tazobactam Sod 3.375 gm/Sodium Chloride 110 ml @ 27.5 mls/hr EVERY 8 HOURS IVPB 08/11/19 22:00 08/16/19 21:59 08/13/19 05:22 Vancomycin HCl (Vanco rx to dose) 1 ea DAILY PRN MISC Per rx protocol 08/11/19 21:00 09/10/19 20:59 Vancomycin/Sodium Chloride 275 ml @ 183.333 mls/hr Q8H IVPB 08/12/19 02:00 08/17/19 01:59 08/13/19 09:34 Emre Moura MD Aug 13, 2019 12:30
--- NOTE | 2019-08-13 13:01 | Hematology/Onc Progress Note ---
Assessment/Plan Assessment/Plan Assessment and Recs: # Heterogeneous 8 cm mass at the right lung base with adjacent 4 cm and 5 cm mass lesions. There is centralized fluid with a few bubbles of air. The findings probably represent multiloculated/septated lung abscess; differential diagnosis is necrotic tumor. Please correlate clinically. Trace right pleural effusion with some loculation. --> is on broad spectrum abx as per id --> id recs appreciated --> will need to obtain potential ct surg --> may need abscess drainage --> CT-guided drainage of abscess for 08/13 # Leukocytosis likely due to lung abscess --> peripheral smear is noted --> no bleeding report --> monitor for stress reaction --> continue abx per id: [email or web address] # Thrombocytosis likely reactive process --> smear noted # Protein caloric malnutrition --> alb is low, replete with ensure, nutrition recs as needed # Pulmonary emphysema/COPD " --- Per official radiology report- Please see report for specific details. --> as per pulm # Pneumonia --> per id abx Appreciate consultation and dw RN Subjective Allergies: Coded Allergies: No Known Allergies (Unverified , 08/11/19) Subjective 08/13: on tele, no acute distress, ct guided drainage of abscess for today, Objective Objective Current Medications Medications (Trade) Dose Ordered Sig/Yo Route PRN Reason Start Time Stop Time Status Last Admin Dose Admin Acetaminophen (Tylenol) 500 mg Q4H PRN ORAL Mild Pain/Temp > 100.5 08/11/19 20:30 09/10/19 20:29 08/12/19 22:39 Barium Sulfate (Readi-Cat 2) 450 ml NOW PRN ORAL Radiology Procedure 08/12/19 06:45 08/14/19 06:40 Dextrose/Sodium Chloride 1,000 ml @ 70 mls/hr [id number] IV 08/13/19 08:15 09/12/19 08:14 08/13/19 08:15 Iohexol (OMNIPAQUE-300 100ml) 100 ml NOW PRN INJ Radiology Procedure 08/12/19 06:45 08/14/19 06:40 Lidocaine HCl (Xylocaine 1% 30ml) 30 ml ONCE PRN INJ cath placement 08/12/19 14:15 08/14/19 23:59 Piperacillin Sod/ Tazobactam Sod 3.375 gm/Sodium Chloride 110 ml @ 27.5 mls/hr EVERY 8 HOURS IVPB 08/11/19 22:00 08/16/19 21:59 08/13/19 05:22 Vancomycin HCl (Vanco rx to dose) 1 ea DAILY PRN MISC Per rx protocol 08/11/19 21:00 09/10/19 20:59 Vancomycin/Sodium Chloride 275 ml @ 183.333 mls/hr Q8H IVPB 08/12/19 02:00 08/17/19 01:59 08/13/19 09:34 Last 24 Hour Vital Signs Date Time Temp Pulse Resp B/P (MAP) Pulse Ox O2 Delivery O2 Flow Rate FiO2 08/13/19 11:51 97.7 67 18 116/69 (85) 94 08/13/19 09:00 Room Air 08/13/19 08:00 98.4 72 18 124/74 (91) 94 08/13/19 08:00 74 08/13/19 04:00 72 08/13/19 04:00 97.4 66 18 103/65 (78) 96 08/13/19 00:00 97.5 60 16 101/61 (74) 95 08/12/19 23:09 97.9 08/12/19 21:00 Room Air 08/12/19 20:00 97.7 56 16 102/63 (76) 97 08/12/19 20:00 78 08/12/19 16:00 97.9 76 20 119/63 (81) 95 08/12/19 16:00 77 08/12/19 12:00 98.2 76 20 116/67 (83) 93 08/12/19 12:00 75 08/12/19 09:00 Room Air 08/12/19 08:00 98.4 73 20 118/71 (87) 93 08/12/19 08:00 77 08/12/19 04:00 97.6 74 18 106/66 (79) 97 08/12/19 04:00 85 08/12/19 00:00 98.0 81 16 116/72 (87) 93 08/12/19 00:00 86 08/11/19 21:57 98.6 88 18 128/69 (88) 92 08/11/19 20:10 Room Air 08/11/19 20:00 85 08/11/19 18:55 97.9 81 18 128/71 96 Room Air 08/11/19 17:15 98.0 84 18 130/73 98 Room Air 08/11/19 15:00 98.2 89 18 124/74 98 Room Air Intake and Output 08/12/19 08/13/19 19:00 07:00 Intake Total 740 ml Output Total 1400 ml 2100 ml Balance -660 ml -2100 ml Intake Oral 740 ml Output Urine Total 1400 ml 2100 ml Stool Total 0 ml # Bowel Movements 1 Labs Test 08/11/19 12:50 08/11/19 14:25 08/12/19 06:48 08/13/19 00:50 White Blood Count 17.2 K/UL (4.8-10.8) 15.0 K/UL (4.8-10.8) Red Blood Count 4.62 M/UL (4.70-6.10) 4.15 M/UL (4.70-6.10) Hemoglobin 14.3 G/DL (14.2-18.0) 12.7 G/DL (14.2-18.0) Hematocrit 43.1 % (42.0-52.0) 38.7 % (42.0-52.0) Mean Corpuscular Volume 93 FL (80-99) 93 FL (80-99) Mean Corpuscular Hemoglobin 30.9 PG (27.0-31.0) 30.6 PG (27.0-31.0) Mean Corpuscular Hemoglobin Concent 33.2 G/DL (32.0-36.0) 32.8 G/DL (32.0-36.0) Red Cell Distribution Width 12.6 % (11.6-14.8) 12.3 % (11.6-14.8) Platelet Count 523 K/UL (150-450) 503 K/UL (150-450) Mean Platelet Volume 6.0 FL (6.5-10.1) 6.2 FL (6.5-10.1) Neutrophils (%) (Auto) 78.4 % (45.0-75.0) 76.4 % (45.0-75.0) Lymphocytes (%) (Auto) 13.6 % (20.0-45.0) 15.3 % (20.0-45.0) Monocytes (%) (Auto) 7.2 % (1.0-10.0) 6.8 % (1.0-10.0) Eosinophils (%) (Auto) 0.1 % (0.0-3.0) 0.6 % (0.0-3.0) Basophils (%) (Auto) 0.7 % (0.0-2.0) 0.9 % (0.0-2.0) Sodium Level 138 MMOL/L (136-145) 139 MMOL/L (136-145) Potassium Level 4.5 MMOL/L (3.5-5.1) 4.1 MMOL/L (3.5-5.1) Chloride Level 97 MMOL/L (98-107) 102 MMOL/L (98-107) Carbon Dioxide Level 29 MMOL/L (21-32) 27 MMOL/L (21-32) Anion Gap 13 mmol/L (5-15) 10 mmol/L (5-15) Blood Urea Nitrogen 9 mg/dL (7-18) 7 mg/dL (7-18) Creatinine 0.7 MG/DL (0.55-1.30) 0.7 MG/DL (0.55-1.30) Estimat Glomerular Filtration Rate > 60 mL/min (>60) > 60 mL/min (>60) Glucose Level 102 MG/DL (74-106) 121 MG/DL (74-106) Calcium Level 9.2 MG/DL (8.5-10.1) 8.7 MG/DL (8.5-10.1) Total Bilirubin 0.4 MG/DL (0.2-1.0) 0.3 MG/DL (0.2-1.0) Aspartate Amino Transf (AST/SGOT) 37 U/L (15-37) 35 U/L (15-37) Alanine Aminotransferase (ALT/SGPT) 34 U/L (12-78) 35 U/L (12-78) Alkaline Phosphatase 158 U/L (46-116) 131 U/L (46-116) Total Creatine Kinase 49 U/L (26-308) Creatine Kinase MB 0.4 NG/ML (0.0-3.6) Creatine Kinase MB Relative Index 0.8 Troponin I 0.000 ng/mL (0.000-0.056) Pro-B-Type Natriuretic Peptide 270 pg/mL (0-125) Total Protein 8.1 G/DL (6.4-8.2) 7.0 G/DL (6.4-8.2) Albumin 1.7 G/DL (3.4-5.0) 1.3 G/DL (3.4-5.0) Globulin 6.4 g/dL 5.7 g/dL Albumin/Globulin Ratio 0.3 (1.0-2.7) 0.2 (1.0-2.7) Lipase 155 U/L (73-393) Urine Color Pale yellow Urine Appearance Clear Urine pH 7 (4.5-8.0) Urine Specific [place] 1.010 (1.005-1.035) Urine Protein Negative (NEGATIVE) Urine Glucose (UA) Negative (NEGATIVE) Urine Ketones Negative (NEGATIVE) Urine Blood Negative (NEGATIVE) Urine Nitrite Negative (NEGATIVE) Urine Bilirubin Negative (NEGATIVE) Urine Urobilinogen Normal MG/DL (0.0-1.0) Urine Leukocyte Esterase Negative (NEGATIVE) Lactic Acid Level 1.10 mmol/L (0.4-2.0) Vancomycin Level Trough 13.8 ug/mL (5.0-12.0) Test 08/13/19 08:15 Prothrombin Time 12.0 SEC (9.30-11.50) Prothromb Time International Ratio 1.1 (0.9-1.1) Activated Partial Thromboplast Time 32 SEC (23-33) Micro Microbiology Date/Time Source Procedure Growth Status 08/12/19 20:30 Sputum Expectorated Gram Stain - Final Resulted 08/12/19 20:30 Sputum Expectorated Sputum Culture Pending Resulted Height (Feet): 5 Height (Inches): 11.00 Weight (Pounds): 227 Objective Physical Exam General: no apparent distress, alert, GCS 15, non-toxic Heent: normocephalic, atraumatic hearing grossly normal, normal voice Neck: full range of motion Resp: chest non-tender, lungs clear, normal breath sounds, no respiratory distress Cardiovascular: regular rate, rhythm, no mgr Gastrointestinal: non tender, soft Neurologic: alert, motor strength/tone normal, oriented x3, sensory intact, responsive, speech normal Psychiatric: judgement/insight normal Skin: no rash Lymphatic: no adenopathy Jarret Quintanilla MD Aug 13, 2019 13:01
--- NOTE | 2019-08-13 14:24 | Pre-Procedure Note/Attestation ---
Pre-Procedure Note/Attestation Complete Prior to Procedure Planned Procedure: right Procedure Narrative: CT guided lung bx and aspiration Indications for Procedure Pre-Operative Diagnosis: lung mass vs. abscess Attestation I attest that I discussed the nature of the procedure; its benefits; risks and complications; and alternatives (and the risks and benefits of such alternatives ), prior to the procedure, with the patient (or the patient's legal risk control representative). I attest that, if there was a reasonable possibility of needing a blood transfusion, the patient (or the patient's legal risk control representative) was given the [facility] standardized written summary, pursuant to the [place] Blood Safety Act ([place] Health and Safety Code # 1645, as amended). I attest that I re-evaluated the patient just prior to the surgery and that there has been no change in the patient's H&P, except as documented below: Miguelito Thornton MD Aug 13, 2019 14:24
--- NOTE | 2019-08-13 14:30 | NUR ---
NURSE NOTES: Patient off the floor for CT guided abscess drainage to the right lung.
--- NOTE | 2019-08-13 15:45 | Brief Operative Note ---
Immediate Post Operative Note Operative Note Pre-op Diagnosis: lung mass vs. abscess Procedure: CT guided core biopsy and aspiration Post-op Diagnosis: same as pre-op Surgeon: Allen Petit Anesthesia: local Specimen: yes - 4 18 G cores-3 for histology, and 1 for microbiology. 5 ml thin but slightly purulent fluid Complications: none Condition: stable Fluids: none Implant(s) used?: No Miguelito Petit MD Aug 13, 2019 15:45
--- NOTE | 2019-08-13 16:00 | NUR ---
NURSE NOTES: Patient returned to the floor S/P CT guided abscess drainage to the right lung. Report received from Darryn 30 cc of fluids removed and biopsy done. Per Darryn Cultures were sent to the lab. . Patient tolerated the procedure well. Dressing intact to the right lung. VSS. Will follow.
--- NOTE | 2019-08-13 16:03 | NUR ---
CASE MANAGEMENT:INITIAL REVIEW 69YR OLD MALE BIB [facility] FROM HOME CC: UPPER RESP. ILLNESS ; COUGH X 1MONTH SI:PNA / DYSPNEA . PULMONARY MASS 98.4 81 18 116/79 98% ON RA WBC 17.2 PLT 523 BNP 270CL- 97 ALK-PHOS 158 IS:IVF NS BOLUS X1 CHEST X-RAY- Abnormal density at the right lung base CHEST CT-Trace right pleural effusion; Pulmonary emphysema/COPD \: 2E TELE UNIT CASE MANAGEMENT: REVIEW 08/13/19 SI:PNA / DYSPNEA . PULMONARY MASS 98.4 72 18 124/74 94% ON RA PT 12.0 IS:IV ZOSYN X1 IV VANCOMYCIN X1 IV DEXTROSE X1 TYLENOL PO X1 \: 2E TELE UNIT PLAN: X-RAY CHEST SPUTUM CX-PENDING CHEST PERCUSSIONS PER RT ABD/PEL CT- Tiny nonobstructive stone in left kidney
--- NOTE | 2019-08-13 16:31 | Diagnostic Imaging Report ---
Indication: Status post biopsy and aspiration of right lower lobe Technique: One view of the chest Comparison: 08/11/2019 Findings: Right lateral basilar masslike opacity is again demonstrated, equivocally slightly smaller. There is some associated pleural fluid. Left lung and pleural space remain clear. The heart size is normal. There is no pneumothorax Impression: No radiographically evident complication, status post right lung biopsy and aspirate
--- NOTE | 2019-08-13 19:05 | NUR ---
HAND-OFF: Report given to Sandra Marin. Patient stable. Plan of care endorsed. Aware to continue post procedure monitoring.
--- NOTE | 2019-08-13 20:00 | NUR ---
NURSE NOTES: Xray done c/o tech.
--- NOTE | 2019-08-13 20:13 | Diagnostic Imaging Report ---
Indication: Status post lung biopsy Technique: One view of the chest Comparison: 4 hours earlier Findings: Right mid and lower lung opacities are stable or perhaps minimally improved. Small right pleural effusion is again demonstrated. The left costophrenic angle is cut off of the exam. There is no pneumothorax. Normal heart size Impression: No evidence of delayed pneumothorax. Other findings as noted. This agrees with the preliminary interpretation provided overnight by [facility] teleradiology service.
[2019-08-13] MEDS: Acetaminophen 500mg (ES) tab ORAL PRN (20:50)
[2019-08-14] VITALS: BP 120/70
[2019-08-14] MEDS: Acetaminophen 500mg (ES) tab ORAL PRN ×2 (00:51→23:25)
[2019-08-14] MEDS: Vancomycin 1.25gm/NS Premix q24h IVPB SCH ×2 (01:08→09:27)
[2019-08-14 04:00] VITALS: BP 102/52
[2019-08-14] MEDS: Piperacillin/Tazobactam 3.375 GM in NS 110 ML IVPB SCH ×3 (05:59→23:06)
--- NOTE | 2019-08-14 07:30 | NUR ---
HAND-OFF: Report given to VINAY Hodges. Plan of care endorsed.
[2019-08-14 08:00] VITALS: BP 105/54
--- NOTE | 2019-08-14 10:33 | Diagnostic Imaging Report ---
Indication: Right lung mass versus abscess Technique: Prior imaging studies reviewed. Informed consent obtained prior to commencement of the procedure. Procedural timeout performed. Localizing spiral acquisitions obtained through the chest. The intended puncture site was marked, sterilely prepped and draped. Local anesthesia with 1% lidocaine. Under CT guidance, a 17-gauge guide needle was directed to the posterior nonliquid area of the consolidated right lower lobe. CT confirms satisfactory position. Total 4 needle passes then made using automated biopsy gun. 3 specimens were sent for histological analysis, and the fourth was sent for microbial analysis. The guide needle was removed, and a Yueh needle was then directed into the liquid/gas portion of the consolidated right lower lobe. Images confirmed satisfactory needle position. Total of approximately 5 mL of thin but slightly purulent fluid mixed with air aspirated. A specimen was sent for microbial analysis as well as for cytology. The patient tolerated the procedure well, without immediate complication. Total dose length product 413 mGycm. CTDIvol(s) 11 mGy. Radiation dose was minimized using automated exposure control Comparison: Reference made to prior CT images dated 08/11/2019 Findings: Intraprocedural images document satisfactory needle placement. Final images demonstrate decreased volume of previously demonstrated right lower lobe gas and fluid collection. The single tiny gas bubble is seen in the pleural space. There is no pneumothorax otherwise Impression: Biopsy of right lower lobe mass/consolidation using 18-gauge biopsy gun, as described Aspiration of suspected right lung abscess, yielding 5 mL of mixed thin fluid and purulent material Pathology and microbiology are pending The CT scanner at [facility] is accredited by the [employer] and the scans are performed using protocols designed to limit radiation exposure to as low as reasonably achievable to attain images of sufficient resolution adequate for diagnostic evaluation.
[2019-08-14] MEDS ORDERED: Milk of Magnesia 30ml Ud ORAL PRN (11:00)
[2019-08-14] MEDS: Docusate 100mg cap ORAL SCH ×2 (11:00→17:11)
[2019-08-14] MEDS: Bisacodyl EC 5mg tab ORAL SCH (11:00)
[2019-08-14 12:00] VITALS: BP 117/68
--- NOTE | 2019-08-14 12:52 | NUR ---
DISCHARGE PLANNING: PATIENT REFERRED TO [facility] WAITING FOR RESPONSE
--- NOTE | 2019-08-14 13:32 | CDS Physician Query ---
Clarification is required for compliance, coding accuracy, and to reflect severity of illness for this patient Dear Emre Santillan MD Date: 08/14/2019 CDS: Miguelito Lux The patient is admitted for pneumonia and dyspnea. The patient comes in because of shortness of breath, possible lung abscess/mass. Also, leukocytosis. The patient had also weakness and presyncopal episode, productive cough, greenish in color, shortness of breath for about a month off and on. The patient was admitted for pneumonia as well as dyspnea, rule out lung abscess. The patient denies chest pain. Denies nausea, vomiting, or diarrhea. Denies heartburn. Denies orthopnea. A diagnosis of "Pneumonia" is documented, and the patient is on: IV ZOSYN and IV VANCOMYCIN Please specify the underlying etiology: [] Gram +Positive Organism(s) [] Anaerobes [] Gram -Negative Organism(s) [] Aspiration [] Pseudomonas [] Mycoplasma [] MRSA [] Not Applicable [] Other organism(s). Please specify: Present on Admission: [] Yes [] No [] Clinically Undetermined Physician signature Date Please also document in your Progress Notes and/or Discharge Summary and indicate if the condition was present on admission. MTDD
--- NOTE | 2019-08-14 13:38 | CDS Physician Query ---
Clarification is required for compliance, coding accuracy, and to reflect severity of illness for this patient Dear Dr.Omar Park Date: 08/14/2019 Forest Firefighter/CDS Name: Miguelito Lux The patient is admitted for pneumonia and dyspnea. The patient comes in because of shortness of breath, possible lung abscess/mass. Also, leukocytosis. The patient had also weakness and presyncopal episode, productive cough, greenish in color, shortness of breath for about a month off and on. The patient was admitted for pneumonia as well as dyspnea, rule out lung abscess. The patient denies chest pain. Denies nausea, vomiting, or diarrhea. Denies heartburn. Denies orthopnea. Assessment/Plan # Protein caloric malnutrition --> alb is low, replete with ensure, nutrition recs as needed Albumin: 1.7--->1.3 Please select the most appropriate option: [] Protein/Calorie Malnutrition [] Mild [] Moderate [] Severe Present on Admission: [] Yes [] No [] Clinically Undetermined Physician signature Date Please also document in your Progress Notes and/or Discharge Summary and indicate if the condition was present on admission. MTDD
--- NOTE | 2019-08-14 13:50 | Pulmonology Progress Note ---
Assessment/Plan Assessment/Plan IMPRESSION: 1. Right lung abscess, suspect due to poor oral hygiene/dental caries. 2. COPD. DISCUSSION: Agree with the use of broad-spectrum antibiotics. S/p CT-guided biopsy I will follow as bmx rider. Await results Kun Park M.D. Subjective Interval Events: S/p lung biopsy; doing well Constitutional: Reports: no symptoms HEENT: Repors: no symptoms Respiratory: Reports: no symptoms Allergies: Coded Allergies: No Known Allergies (Unverified , 08/11/19) Objective Last 24 Hour Vital Signs Date Time Temp Pulse Resp B/P (MAP) Pulse Ox O2 Delivery O2 Flow Rate FiO2 08/14/19 12:00 72 08/14/19 12:00 97.9 70 18 117/68 (84) 96 08/14/19 09:00 Room Air 08/14/19 08:00 98.2 77 18 105/54 (71) 95 08/14/19 04:00 97.5 93 17 102/52 (69) 99 08/14/19 04:00 63 08/14/19 01:21 98.1 08/14/19 00:00 71 08/14/19 00:00 97.3 92 17 120/70 (87) 96 08/13/19 21:00 Room Air 08/13/19 20:00 69 08/13/19 20:00 98.2 66 18 116/61 (79) 93 08/13/19 19:00 98.1 75 18 119/72 (88) 95 08/13/19 18:00 97.8 95 19 128/74 (92) 94 08/13/19 17:30 97.8 90 18 126/70 (88) 96 08/13/19 17:00 97.8 76 18 120/91 (101) 96 08/13/19 16:45 97.8 76 18 133/78 (96) 97 08/13/19 16:30 97.6 72 19 111/76 (88) 96 08/13/19 16:00 76 08/13/19 16:00 97.6 72 18 114/86 (95) 94 08/13/19 15:35 75 18 128/74 (92) 97 08/13/19 15:30 74 18 126/79 (95) 96 08/13/19 15:25 68 18 124/78 (93) 97 08/13/19 15:20 66 18 122/80 (94) 97 08/13/19 15:15 69 18 123/83 (96) 95 08/13/19 15:10 72 18 116/62 (80) 95 08/13/19 15:05 68 18 137/82 (100) 96 08/13/19 14:30 68 18 3.0 Intake and Output 08/13/19 08/14/19 19:00 07:00 Intake Total 1120 ml 120 ml Output Total 1600 ml Balance 1120 ml -1480 ml Intake Oral 1120 ml 120 ml Output Urine Total 1600 ml # Voids 8 General Appearance: no acute distress HEENT: normocephalic Respiratory/Chest: chest wall non-tender, lungs clear Cardiovascular: normal peripheral pulses Abdomen: normal bowel sounds Microbiology Date/Time Source Procedure Growth Status 08/11/19 14:25 Blood Blood Culture - Preliminary NO GROWTH AFTER 48 HOURS Resulted 08/11/19 14:10 Blood Blood Culture - Preliminary NO GROWTH AFTER 48 HOURS Resulted 08/13/19 15:15 Other Fluid Gram Stain Pending Resulted 08/13/19 15:15 Other Fluid Body Fluid Culture - Preliminary Resulted 08/12/19 20:30 Sputum Expectorated Gram Stain - Final Resulted 08/12/19 20:30 Sputum Expectorated Sputum Culture - Preliminary NORMAL UPPER RESPIRATORY MARCELLE AT 24 ... Resulted 08/13/19 15:15 Lung Right Gram Stain Pending Resulted 08/13/19 15:15 Lung Right Aerobic Culture - Preliminary NO GROWTH Resulted 08/13/19 15:15 Lung Right Anaerobic Culture Pending Resulted Laboratory Tests 08/14/19 08:50: Vancomycin Level Trough 25.6H Current Medications Medications (Trade) Dose Ordered Sig/Yo Route PRN Reason Start Time Stop Time Status Last Admin Dose Admin Acetaminophen (Tylenol) 500 mg Q4H PRN ORAL Mild Pain/Temp > 100.5 08/11/19 20:30 09/10/19 20:29 08/14/19 00:51 Bisacodyl (Dulcolax) 10 mg DAILY ORAL 08/14/19 11:00 09/13/19 10:59 Docusate Sodium (Colace) 100 mg BID ORAL 08/14/19 11:00 09/13/19 10:59 Lidocaine HCl (Xylocaine 1% 30ml) 30 ml ONCE PRN INJ cath placement 08/12/19 14:15 08/14/19 23:59 Magnesium Hydroxide (Mom) 30 ml Q4H PRN ORAL Constipation 08/14/19 11:00 09/13/19 10:59 Piperacillin Sod/ Tazobactam Sod 3.375 gm/Sodium Chloride 110 ml @ 27.5 mls/hr EVERY 8 HOURS IVPB 08/11/19 22:00 08/16/19 21:59 08/14/19 12:59 Vancomycin HCl (Vanco rx to dose) 1 ea DAILY PRN MISC Per rx protocol 08/11/19 21:00 09/10/19 20:59 Vancomycin/Sodium Chloride 275 ml @ 137.5 mls/ hr Q12H IVPB 08/14/19 23:00 08/19/19 22:59 Kun Park MD Aug 14, 2019 13:50
--- NOTE | 2019-08-14 13:58 | Infectious Diseases Prog Note ---
Assessment/Plan Assessment/Plan IMPRESSION: Lung abscess. COPD, Emphysema. Thrombocytosis. RECOMMENDATION: Continue Zosyn and vancomycin. Sputum culture: normal taylor will f/u abscess culture Will f/u biopsy report Subjective ROS Limited/Unobtainable: No Constitutional: Reports: no symptoms, other - feels better Respiratory: Reports: productive cough, other - had CT guided drainage of lung abscess & lung biopsy Cardiovascular: Reports: no symptoms Gastrointestinal/Abdominal: Reports: no symptoms Genitourinary: Reports: no symptoms Allergies: Coded Allergies: No Known Allergies (Unverified , 08/11/19) Objective Vital Signs Last 24 Hour Vital Signs Date Time Temp Pulse Resp B/P (MAP) Pulse Ox O2 Delivery O2 Flow Rate FiO2 08/14/19 12:00 72 08/14/19 12:00 97.9 70 18 117/68 (84) 96 08/14/19 09:00 Room Air 08/14/19 08:00 98.2 77 18 105/54 (71) 95 08/14/19 04:00 97.5 93 17 102/52 (69) 99 08/14/19 04:00 63 08/14/19 01:21 98.1 08/14/19 00:00 71 08/14/19 00:00 97.3 92 17 120/70 (87) 96 08/13/19 21:00 Room Air 08/13/19 20:00 69 08/13/19 20:00 98.2 66 18 116/61 (79) 93 08/13/19 19:00 98.1 75 18 119/72 (88) 95 08/13/19 18:00 97.8 95 19 128/74 (92) 94 08/13/19 17:30 97.8 90 18 126/70 (88) 96 08/13/19 17:00 97.8 76 18 120/91 (101) 96 08/13/19 16:45 97.8 76 18 133/78 (96) 97 08/13/19 16:30 97.6 72 19 111/76 (88) 96 08/13/19 16:00 76 08/13/19 16:00 97.6 72 18 114/86 (95) 94 08/13/19 15:35 75 18 128/74 (92) 97 08/13/19 15:30 74 18 126/79 (95) 96 08/13/19 15:25 68 18 124/78 (93) 97 08/13/19 15:20 66 18 122/80 (94) 97 08/13/19 15:15 69 18 123/83 (96) 95 08/13/19 15:10 72 18 116/62 (80) 95 08/13/19 15:05 68 18 137/82 (100) 96 08/13/19 14:30 68 18 3.0 Height (Feet): 5 Height (Inches): 11.00 Weight (Pounds): 227 General Appearance: no acute distress HEENT: mucous membranes moist Respiratory/Chest: lungs clear Cardiovascular: normal rate Abdomen: soft, non tender Extremities: other - trace edema Neurologic/Psychiatric: alert, oriented x 3, responsive Microbiology Date/Time Source Procedure Growth Status 08/11/19 14:25 Blood Blood Culture - Preliminary NO GROWTH AFTER 48 HOURS Resulted 08/11/19 14:10 Blood Blood Culture - Preliminary NO GROWTH AFTER 48 HOURS Resulted 08/13/19 15:15 Other Fluid Gram Stain Pending Resulted 08/13/19 15:15 Other Fluid Body Fluid Culture - Preliminary Resulted 08/12/19 20:30 Sputum Expectorated Gram Stain - Final Resulted 08/12/19 20:30 Sputum Expectorated Sputum Culture - Preliminary NORMAL UPPER RESPIRATORY TAYLOR AT 24 ... Resulted 08/13/19 15:15 Lung Right Gram Stain Pending Resulted 08/13/19 15:15 Lung Right Aerobic Culture - Preliminary NO GROWTH Resulted 08/13/19 15:15 Lung Right Anaerobic Culture Pending Resulted Laboratory Tests Test 08/14/19 08:50 Vancomycin Level Trough 25.6 ug/mL (5.0-12.0) H Current Medications Medications (Trade) Dose Ordered Sig/Yo Route PRN Reason Start Time Stop Time Status Last Admin Dose Admin Acetaminophen (Tylenol) 500 mg Q4H PRN ORAL Mild Pain/Temp > 100.5 08/11/19 20:30 09/10/19 20:29 08/14/19 00:51 Bisacodyl (Dulcolax) 10 mg DAILY ORAL 08/14/19 11:00 09/13/19 10:59 Docusate Sodium (Colace) 100 mg BID ORAL 08/14/19 11:00 09/13/19 10:59 Lidocaine HCl (Xylocaine 1% 30ml) 30 ml ONCE PRN INJ cath placement 08/12/19 14:15 08/14/19 23:59 Magnesium Hydroxide (Mom) 30 ml Q4H PRN ORAL Constipation 08/14/19 11:00 09/13/19 10:59 Piperacillin Sod/ Tazobactam Sod 3.375 gm/Sodium Chloride 110 ml @ 27.5 mls/hr EVERY 8 HOURS IVPB 08/11/19 22:00 08/16/19 21:59 08/14/19 12:59 Vancomycin HCl (Vanco rx to dose) 1 ea DAILY PRN MISC Per rx protocol 08/11/19 21:00 09/10/19 20:59 Vancomycin/Sodium Chloride 275 ml @ 137.5 mls/ hr Q12H IVPB 08/14/19 23:00 08/19/19 22:59 Emre Moura MD Aug 14, 2019 13:58
[2019-08-14] MEDS ORDERED: Vancomycin 1750mg/D5W 550ml IVPB SCH ×2 (15:00)
[2019-08-14 16:09] VITALS: BP 140/96
--- NOTE | 2019-08-14 17:48 | NUR ---
DISCHARGE DISPOSITION: PLEASE READ PATIENT TO BE DISCHARGED TO [facility] [address] T: [phone]>> CALL FOR REPORT LIFELINE IS ON WILL CALL PER MD PATIENT TO BE DISCHARGED MOST LIKELY TRANSFER REPORT PROVIDED TO NURSES STATION
--- NOTE | 2019-08-14 18:56 | NUR ---
PER " HE WILL CALL BACK TOMORROW MORNING TO GIVE D/C ORDER"
--- NOTE | 2019-08-14 19:46 | NUR ---
NURSE NOTES: Received report from VINAY Hodges. Patient is awake, lying in semi maradiaga's; resting comfortably. A/Ox4. Denies pain at this time. Checked IV site and patent, asymptomatic. Bed at lowest position, locked, side rails x3 per pt request. Call light within reach. Will continue to monitor
[2019-08-14 20:00] VITALS: BP 114/75
--- NOTE | 2019-08-14 20:56 | General Progress Note ---
Assessment/Plan Problem List: (1) Pneumonia ICD Codes: J18.9 - Pneumonia, unspecified organism SNOMED: 236950092 Qualifiers: Qualified Codes: J18.9 - Pneumonia, unspecified organism (2) Pulmonary mass ICD Codes: R91.8 - Other nonspecific abnormal finding of lung field SNOMED: 414188072 Status: progressing Assessment/Plan: afebrile no sob lung abscess s/p drainage by IR needs to go to snf for iv abx pna abx per id continue iv abx will discuss w operational risk consultant re w/u lung mass Subjective ROS Limited/Unobtainable: Yes Allergies: Coded Allergies: No Known Allergies (Unverified , 08/11/19) Objective Last 24 Hour Vital Signs Date Time Temp Pulse Resp B/P (MAP) Pulse Ox O2 Delivery O2 Flow Rate FiO2 08/14/19 16:09 98.2 76 18 140/96 (111) 95 08/14/19 12:00 72 08/14/19 12:00 97.9 70 18 117/68 (84) 96 08/14/19 09:00 Room Air 08/14/19 08:00 98.2 77 18 105/54 (71) 95 08/14/19 04:00 97.5 93 17 102/52 (69) 99 08/14/19 04:00 63 08/14/19 01:21 98.1 08/14/19 00:00 71 08/14/19 00:00 97.3 92 17 120/70 (87) 96 08/13/19 21:00 Room Air Intake and Output 08/13/19 08/14/19 19:00 07:00 Intake Total 1120 ml 120 ml Output Total 1600 ml Balance 1120 ml -1480 ml Intake Oral 1120 ml 120 ml Output Urine Total 1600 ml # Voids 8 Laboratory Tests 08/14/19 08:50: Vancomycin Level Trough 25.6H Height (Feet): 5 Height (Inches): 11.00 Weight (Pounds): 227 EENT: TMs normal Neck: supple Cardiovascular: normal rate Respiratory/Chest: lungs clear Kishore Max MD Aug 14, 2019 20:56
[2019-08-14] MEDS ORDERED: Vancomycin 1.5gm/NS Premix IVPB SCH (23:00)
[2019-08-15 00:15] VITALS: BP 117/71
[2019-08-15 04:00] VITALS: BP 114/73
[2019-08-15] MEDS: Piperacillin/Tazobactam 3.375 GM in NS 110 ML IVPB SCH (06:56)
[2019-08-15 07:54] LABS: BASOPHILS % (AUTO) 0.6 % (0.0-2.0); EOSINOPHILS % (AUTO) 2.2 % (0.0-3.0); HEMATOCRIT 35.3 % (42.0-52.0); HEMOGLOBIN 11.8 G/DL (14.2-18.0); LYMPHOCYTES % (AUTO) 16.3 % (20.0-45.0); MEAN CORPUSCULAR VOLUME 94 FL (80-99); MONOCYTES % (AUTO) 8.5 % (1.0-10.0); NEUTROPHILS % (AUTO) 72.4 % (45.0-75.0); PLATELET COUNT 512 K/UL (150-450); RED BLOOD COUNT 3.76 M/UL (4.70-6.10); RED CELL DISTRIBUTION WIDTH 12.9 % (11.6-14.8); WHITE BLOOD COUNT 11.5 K/UL (4.8-10.8)
--- NOTE | 2019-08-15 07:55 | NUR ---
HAND-OFF: Report given to VINAY Carmona.
[2019-08-15 08:00] VITALS: BP 124/85
--- NOTE | 2019-08-15 08:24 | Hematology/Onc Progress Note ---
Assessment/Plan Assessment/Plan Assessment and Recs: # Heterogeneous 8 cm mass at the right lung base with adjacent 4 cm and 5 cm mass lesions. There is centralized fluid with a few bubbles of air. The findings probably represent multiloculated/septated lung abscess; differential diagnosis is necrotic tumor. Please correlate clinically. Trace right pleural effusion with some loculation. --> is on broad spectrum abx as per id --> id recs appreciated --> will need to obtain potential ct surg --> may need abscess drainage --> CT-guided drainage of abscess for 08/13 # Leukocytosis likely due to lung abscess --> peripheral smear is noted --> no bleeding report --> monitor for stress reaction --> continue abx per id: [email or web address] # Thrombocytosis likely reactive process --> smear noted # Protein caloric malnutrition --> alb is low, replete with ensure, nutrition recs as needed # Pulmonary emphysema/COPD " --- Per official radiology report- Please see report for specific details. --> as per pulm # Pneumonia --> per id abx Appreciate consultation and dw RN Subjective Allergies: Coded Allergies: No Known Allergies (Unverified , 08/11/19) Subjective 08/13: on tele, no acute distress, ct guided drainage of abscess for today, 08/14: awake and alert, no acute events, dc planning Objective Objective Current Medications Medications (Trade) Dose Ordered Sig/Yo Route PRN Reason Start Time Stop Time Status Last Admin Dose Admin Acetaminophen (Tylenol) 500 mg Q4H PRN ORAL Mild Pain/Temp > 100.5 08/11/19 20:30 09/10/19 20:29 08/14/19 23:25 Bisacodyl (Dulcolax) 10 mg DAILY ORAL 08/14/19 11:00 09/13/19 10:59 Docusate Sodium (Colace) 100 mg BID ORAL 08/14/19 11:00 09/13/19 10:59 Magnesium Hydroxide (Mom) 30 ml Q4H PRN ORAL Constipation 08/14/19 11:00 09/13/19 10:59 Piperacillin Sod/ Tazobactam Sod 3.375 gm/Sodium Chloride 110 ml @ 27.5 mls/hr EVERY 8 HOURS IVPB 08/11/19 22:00 08/16/19 21:59 08/15/19 06:56 Vancomycin HCl (Vanco rx to dose) 1 ea DAILY PRN MISC Per rx protocol 08/11/19 21:00 09/10/19 20:59 Vancomycin/Sodium Chloride 275 ml @ 137.5 mls/ hr Q12H IVPB 08/14/19 23:00 08/19/19 22:59 08/14/19 23:05 Last 24 Hour Vital Signs Date Time Temp Pulse Resp B/P (MAP) Pulse Ox O2 Delivery O2 Flow Rate FiO2 08/15/19 04:00 98.1 65 17 114/73 (87) 91 08/15/19 00:15 98.8 76 18 117/71 (86) 91 08/14/19 21:00 Room Air 08/14/19 20:00 98.2 73 18 114/75 (88) 92 08/14/19 16:09 98.2 76 18 140/96 (111) 95 08/14/19 12:00 72 08/14/19 12:00 97.9 70 18 117/68 (84) 96 08/14/19 09:00 Room Air 08/14/19 08:00 98.2 77 18 105/54 (71) 95 08/14/19 04:00 97.5 93 17 102/52 (69) 99 08/14/19 04:00 63 08/14/19 01:21 98.1 08/14/19 00:00 71 08/14/19 00:00 97.3 92 17 120/70 (87) 96 08/13/19 21:00 Room Air 08/13/19 20:00 69 08/13/19 20:00 98.2 66 18 116/61 (79) 93 08/13/19 19:00 98.1 75 18 119/72 (88) 95 08/13/19 18:00 97.8 95 19 128/74 (92) 94 08/13/19 17:30 97.8 90 18 126/70 (88) 96 08/13/19 17:00 97.8 76 18 120/91 (101) 96 08/13/19 16:45 97.8 76 18 133/78 (96) 97 08/13/19 16:30 97.6 72 19 111/76 (88) 96 08/13/19 16:00 76 08/13/19 16:00 97.6 72 18 114/86 (95) 94 08/13/19 15:35 75 18 128/74 (92) 97 08/13/19 15:30 74 18 126/79 (95) 96 08/13/19 15:25 68 18 124/78 (93) 97 08/13/19 15:20 66 18 122/80 (94) 97 08/13/19 15:15 69 18 123/83 (96) 95 08/13/19 15:10 72 18 116/62 (80) 95 08/13/19 15:05 68 18 137/82 (100) 96 08/13/19 14:30 68 18 3.0 08/13/19 12:00 69 08/13/19 11:51 97.7 67 18 116/69 (85) 94 08/13/19 09:00 Room Air Intake and Output 08/14/19 08/15/19 19:00 07:00 Intake Total 480 ml Output Total 1500 ml 1500 ml Balance -1020 ml -1500 ml Intake Oral 480 ml Output Urine Total 1500 ml 1500 ml # Voids 7 Labs Test 08/13/19 00:50 08/13/19 08:15 08/14/19 08:50 08/15/19 06:40 Vancomycin Level Trough 13.8 ug/mL (5.0-12.0) 25.6 ug/mL (5.0-12.0) Prothrombin Time 12.0 SEC (9.30-11.50) Prothromb Time International Ratio 1.1 (0.9-1.1) Activated Partial Thromboplast Time 32 SEC (23-33) White Blood Count 11.5 K/UL (4.8-10.8) Red Blood Count 3.76 M/UL (4.70-6.10) Hemoglobin 11.8 G/DL (14.2-18.0) Hematocrit 35.3 % (42.0-52.0) Mean Corpuscular Volume 94 FL (80-99) Mean Corpuscular Hemoglobin 31.4 PG (27.0-31.0) Mean Corpuscular Hemoglobin Concent 33.5 G/DL (32.0-36.0) Red Cell Distribution Width 12.9 % (11.6-14.8) Platelet Count 512 K/UL (150-450) Mean Platelet Volume 5.7 FL (6.5-10.1) Neutrophils (%) (Auto) 72.4 % (45.0-75.0) Lymphocytes (%) (Auto) 16.3 % (20.0-45.0) Monocytes (%) (Auto) 8.5 % (1.0-10.0) Eosinophils (%) (Auto) 2.2 % (0.0-3.0) Basophils (%) (Auto) 0.6 % (0.0-2.0) Height (Feet): 5 Height (Inches): 11.00 Weight (Pounds): 227 Objective Physical Exam General: no apparent distress, alert, GCS 15, non-toxic Heent: normocephalic, atraumatic hearing grossly normal, normal voice Neck: full range of motion Resp: chest non-tender, lungs clear, normal breath sounds, no respiratory distress Cardiovascular: regular rate, rhythm, no mgr Gastrointestinal: non tender, soft Neurologic: alert, motor strength/tone normal, oriented x3, sensory intact, responsive, speech normal Psychiatric: judgement/insight normal Skin: no rash Lymphatic: no adenopathy Jarret Quintanilla MD Aug 15, 2019 08:24
[2019-08-15] MEDS: Docusate 100mg cap ORAL SCH (08:52)
[2019-08-15] MEDS: Bisacodyl EC 5mg tab ORAL SCH (08:52)
--- NOTE | 2019-08-15 09:10 | NUR ---
NURSE NOTES: Per Dr. Max, discharge patient to [facility], continue home medication, MD made aware no home med at home, discontinue hospital med including IV antibiotic. Order noted, entered, carried out. Patient made aware of discharge, per patient, would like to speak with MD and wanted to stay one more day for IV abx. Called Dr. Max.
--- NOTE | 2019-08-15 09:11 | NUR ---
NURSE NOTES: Per Dr. aMx, arjun to keep IV access just for in case. Order noted, entered, carried out. Will continue to monitor.
--- NOTE | 2019-08-15 10:00 | NUR ---
NURSE NOTES: Dr. Max spoke with patient, patient agree to discharge.
--- NOTE | 2019-08-15 11:08 | Infectious Diseases Prog Note ---
Assessment/Plan Assessment/Plan IMPRESSION: Lung abscess. COPD, Emphysema. Thrombocytosis. RECOMMENDATION: Continue Zosyn May discontinue vancomycin. Continue antibiotic for 4-6 weeks Zosyn can be switched to Augment at time of discharge to home Sputum culture: normal taylor will f/u abscess culture Cytology: no malignant cell Subjective ROS Limited/Unobtainable: No Constitutional: Reports: no symptoms Respiratory: Reports: productive cough Gastrointestinal/Abdominal: Reports: no symptoms Genitourinary: Reports: no symptoms Neurologic: Reports: no symptoms Allergies: Coded Allergies: No Known Allergies (Unverified , 08/11/19) Objective Vital Signs Last 24 Hour Vital Signs Date Time Temp Pulse Resp B/P (MAP) Pulse Ox O2 Delivery O2 Flow Rate FiO2 08/15/19 09:00 Room Air 08/15/19 08:00 98.2 65 17 124/85 (98) 93 08/15/19 04:00 98.1 65 17 114/73 (87) 91 08/15/19 00:15 98.8 76 18 117/71 (86) 91 08/14/19 21:00 Room Air 08/14/19 20:00 98.2 73 18 114/75 (88) 92 08/14/19 16:09 98.2 76 18 140/96 (111) 95 08/14/19 12:00 72 08/14/19 12:00 97.9 70 18 117/68 (84) 96 Height (Feet): 5 Height (Inches): 11.00 Weight (Pounds): 227 General Appearance: no acute distress HEENT: mucous membranes moist Respiratory/Chest: lungs clear Cardiovascular: normal rate Abdomen: soft, non tender Extremities: no edema Neurologic/Psychiatric: alert, oriented x 3, responsive Microbiology Date/Time Source Procedure Growth Status 08/13/19 15:15 Other Fluid Gram Stain Pending Resulted 08/13/19 15:15 Other Fluid Body Fluid Culture - Preliminary Resulted 08/12/19 20:30 Sputum Expectorated Gram Stain - Final Complete 08/12/19 20:30 Sputum Expectorated Sputum Culture - Final NORMAL UPPER RESPIRATORY TAYLOR PRESENT Complete 08/13/19 15:15 Lung Right Gram Stain - Final Resulted 08/13/19 15:15 Lung Right Aerobic Culture - Preliminary NO GROWTH Resulted 08/13/19 15:15 Lung Right Anaerobic Culture Pending Resulted Laboratory Tests Test 08/15/19 06:40 White Blood Count 11.5 K/UL (4.8-10.8) H Red Blood Count 3.76 M/UL (4.70-6.10) L Hemoglobin 11.8 G/DL (14.2-18.0) L Hematocrit 35.3 % (42.0-52.0) L Mean Corpuscular Volume 94 FL (80-99) Mean Corpuscular Hemoglobin 31.4 PG (27.0-31.0) H Mean Corpuscular Hemoglobin Concent 33.5 G/DL (32.0-36.0) Red Cell Distribution Width 12.9 % (11.6-14.8) Platelet Count 512 K/UL (150-450) H Mean Platelet Volume 5.7 FL (6.5-10.1) L Neutrophils (%) (Auto) 72.4 % (45.0-75.0) Lymphocytes (%) (Auto) 16.3 % (20.0-45.0) L Monocytes (%) (Auto) 8.5 % (1.0-10.0) Eosinophils (%) (Auto) 2.2 % (0.0-3.0) Basophils (%) (Auto) 0.6 % (0.0-2.0) Current Medications Medications (Trade) Dose Ordered Sig/Yo Route PRN Reason Start Time Stop Time Status Last Admin Dose Admin Acetaminophen (Tylenol) 500 mg Q4H PRN ORAL Mild Pain/Temp > 100.5 08/11/19 20:30 09/10/19 20:29 08/14/19 23:25 Bisacodyl (Dulcolax) 10 mg DAILY ORAL 08/14/19 11:00 09/13/19 10:59 08/15/19 08:52 Docusate Sodium (Colace) 100 mg BID ORAL 08/14/19 11:00 09/13/19 10:59 08/15/19 08:52 Magnesium Hydroxide (Mom) 30 ml Q4H PRN ORAL Constipation 08/14/19 11:00 09/13/19 10:59 Piperacillin Sod/ Tazobactam Sod 3.375 gm/Sodium Chloride 110 ml @ 27.5 mls/hr EVERY 8 HOURS IVPB 08/11/19 22:00 3/1/20 21:59 08/15/19 06:56 Vancomycin HCl (Vanco rx to dose) 1 ea DAILY PRN MISC Per rx protocol 08/11/19 21:00 09/10/19 20:59 Vancomycin/Sodium Chloride 275 ml @ 137.5 mls/ hr Q12H IVPB 08/14/19 23:00 08/19/19 22:59 08/14/19 23:05 Emre Moura MD Aug 15, 2019 11:08
--- NOTE | 2019-08-15 11:12 | NUR ---
NURSE NOTES: Dr. Moura M at the nursing station, per MD, patient need IV Zosyn TID for [address] Max made aware of Dr. Moura's recommendation. Per Dr. Max, do not worry about IV abx for now, will order when patient go SNF, MD will call SNF for orders. No discharge med ordered at this time.
--- NOTE | 2019-08-15 11:30 | NUR ---
NURSE NOTES: [facility], , report given to VINAY Mckeon. Patient going [id number].
--- NOTE | 2019-08-15 11:30 | Pulmonology Progress Note ---
Assessment/Plan Assessment/Plan IMPRESSION: 1. Right lung abscess, suspect due to poor oral hygiene/dental caries. 2. COPD. DISCUSSION: Agree with the use of broad-spectrum antibiotics. S/p CT-guided biopsy I will follow as communications instructor. Await results DC planning to Kun Park M.D. Subjective Interval Events: None new Constitutional: Reports: no symptoms HEENT: Repors: no symptoms Respiratory: Reports: no symptoms Cardiovascular: Reports: no symptoms Gastrointestinal/Abdominal: Reports: no symptoms Genitourinary: Reports: no symptoms Allergies: Coded Allergies: No Known Allergies (Unverified , 08/11/19) Objective Last 24 Hour Vital Signs Date Time Temp Pulse Resp B/P (MAP) Pulse Ox O2 Delivery O2 Flow Rate FiO2 08/15/19 09:00 Room Air 08/15/19 08:00 98.2 65 17 124/85 (98) 93 08/15/19 04:00 98.1 65 17 114/73 (87) 91 08/15/19 00:15 98.8 76 18 117/71 (86) 91 08/14/19 21:00 Room Air 08/14/19 20:00 98.2 73 18 114/75 (88) 92 08/14/19 16:09 98.2 76 18 140/96 (111) 95 08/14/19 12:00 72 08/14/19 12:00 97.9 70 18 117/68 (84) 96 Intake and Output 08/14/19 08/15/19 19:00 07:00 Intake Total 480 ml Output Total 1500 ml 1500 ml Balance -1020 ml -1500 ml Intake Oral 480 ml Output Urine Total 1500 ml 1500 ml # Voids 7 General Appearance: no acute distress HEENT: normocephalic Respiratory/Chest: chest wall non-tender, normal breath sounds Cardiovascular: normal peripheral pulses, regular rhythm Abdomen: normal bowel sounds Microbiology Date/Time Source Procedure Growth Status 08/13/19 15:15 Other Fluid Gram Stain Pending Resulted 08/13/19 15:15 Other Fluid Body Fluid Culture - Preliminary Resulted 08/12/19 20:30 Sputum Expectorated Gram Stain - Final Complete 08/12/19 20:30 Sputum Expectorated Sputum Culture - Final NORMAL UPPER RESPIRATORY MARCELLE PRESENT Complete 08/13/19 15:15 Lung Right Gram Stain - Final Resulted 08/13/19 15:15 Lung Right Aerobic Culture - Preliminary NO GROWTH Resulted 08/13/19 15:15 Lung Right Anaerobic Culture Pending Resulted Laboratory Tests 08/15/19 06:40: White Blood Count 11.5H, Red Blood Count 3.76L, Hemoglobin 11.8L, Hematocrit 35.3L, Mean Corpuscular Volume 94, Mean Corpuscular Hemoglobin 31.4H, Mean Corpuscular Hemoglobin Concent 33.5, Red Cell Distribution Width 12.9, Platelet Count 512H, Mean Platelet Volume 5.7L, Neutrophils (%) (Auto) 72.4, Lymphocytes (%) (Auto) 16.3L, Monocytes (%) (Auto) 8.5, Eosinophils (%) (Auto) 2.2, Basophils (%) (Auto) 0.6 Current Medications Medications (Trade) Dose Ordered Sig/Yo Route PRN Reason Start Time Stop Time Status Last Admin Dose Admin Acetaminophen (Tylenol) 500 mg Q4H PRN ORAL Mild Pain/Temp > 100.5 08/11/19 20:30 09/10/19 20:29 08/14/19 23:25 Bisacodyl (Dulcolax) 10 mg DAILY ORAL 08/14/19 11:00 09/13/19 10:59 08/15/19 08:52 Docusate Sodium (Colace) 100 mg BID ORAL 08/14/19 11:00 09/13/19 10:59 08/15/19 08:52 Magnesium Hydroxide (Mom) 30 ml Q4H PRN ORAL Constipation 08/14/19 11:00 09/13/19 10:59 Piperacillin Sod/ Tazobactam Sod 3.375 gm/Sodium Chloride 110 ml @ 27.5 mls/hr EVERY 8 HOURS IVPB 08/11/19 22:00 08/16/19 21:59 08/15/19 06:56 Kun Park MD Aug 15, 2019 11:30
[2019-08-15 12:00] VITALS: BP 128/72
[2019-08-15] MEDS ORDERED: Tubing IV Secondary IV ONE ×2 (12:52)
[2019-08-15] MEDS ORDERED: NS 275ml ONE (12:52)
--- NOTE | 2019-08-15 13:15 | NUR ---
NURSE NOTES: Patient discharged per Dr. Max to [facility]. entry specialists removed and returned to sand technician. Per MD, keep IV access, ID band removed and placed in shredder. Patient discharged with all belongings. Patient transferred via Ambulance in a stable condition.
--- NOTE | 2019-08-17 11:52 | Discharge Summary ---
Discharge Summary Discharge Summary _ DATE OF ADMISSION: 08/11/2019 DATE OF DISCHARGE: 08/15/2019 DISCHARGED BY: REASON FOR ADMISSION: 69 years old male with no significant past medical history, presented to emergency department with complaint of productive cough for 1 month and increased fatigue. Initially he reported fever and chills and his symptoms were more severe. Fever and chills resolved, however cough and fatigue improved only slightly. Patient reported history of tobacco use until age of 37, then he switched to smoking marijuana daily. Upon evaluation vital signs were stable. Laboratory work-up revealed leukocytosis with WBC 17.2, stable hemoglobin and hematocrit. Stable electrolytes and renal parameters. Troponin negative , pro BNP 270. Urinalysis revealed no evidence of urinary tract infection. Chest x-ray demonstrated abnormal density at the right lung base. Infiltrate versus mass or loculated pleural fluid. CT scan of the chest revealed heterogeneous 8 cm mass at the right lung base with adjacent 4 cm and 5 cm mass lesions. Centralized fluid with few bubbles of air finding , most probably represented multiloculated septated flank abscess. Patient subsequently admitted for further management. CONSULTANTS: pulmonary Dr. Park ID specialist Dr. Emre Moura kosher inspector/oncologist Dr. Quintanilla [facility]: Patient admitted to telemetry floor. Aircraft Engine Dismantler and oncologist closely followed. Antibiotics provided as per ID specialist recommendation. Blood cultures were negative. Sputum culture was negative. Patient undergone CT of the abdomen and pelvis which revealed tiny nonobstructive stone in the left kidney. Suggestion of sludge versus small stones in the gallbladder. Hiatal hernia. Degenerative changes of the spine. Patient subsequently undergone CT-guided drainage of the suspected right lung abscess, which yielded 5 mL of mixed fluid and purulent material. Cytology was negative for malignant cells. Abundant neutrophils noted. IV antibiotic provided while in the hospital. Patient switched to oral antibiotics to complete the course upon discharge. Patient will need to repeat CT scan as outpatient to ensure resolution of the lung abscess. Patient was counseled on smoking cessation. Supplemental oxygen provided and titrated to keep oximetry above 92%. Pulmonary toilet with bronchodilator provided. Per telephone service representative , right lung abscess was possibly due to poor oral hygiene and dental caries. Symptomatic treatment provided. Bowel regimen instituted. Pain management was addressed as needed. Placement was secured to [facility] facility. Patient was was stable for transfer. FINAL DIAGNOSIS Lung abscess Status post aspiration of lung abscess heterogeneous 8 cm mass right lung base with adjacent 4 to 5 cm mass lesion Leukocytosis Protein calorie malnutrition COPD Pulmonary emphysema Pneumonia DISCHARGE MEDICATIONS: See Medication Reconciliation list. DISCHARGE INSTRUCTIONS: Patient was discharged to the [facility] facility. Follow up with medical doctor at the facility. I have been assigned to dictate discharge summary for this account. I was not involved in the patient's management. Chetna Rodriguez NP Aug 17, 2019 11:52
== END 2019-08-15 13:43 | DRG 166 ==
LOC: EDBD 12:01 → EMR 14:40 → 2E 15:10 → EDBEDREQ 17:46
PROC: 0B9 Respiratory System, Drainage (ICD-10-PCS; principal; 2019-08-13)
PROC: 0BBF3ZX Excision of Right Lower Lung Lobe, Percutaneous Approach, Diagnostic (ICD-10-PCS; principal; 2019-08-13)
DX: J85.1 Abscess of lung with pneumonia (principal); E43 Unspecified severe protein-calorie malnutrition; E46 Unspecified protein-calorie malnutrition; K21.9 Gastro-esophageal reflux disease without esophagitis; R91.8 Other nonspecific abnormal finding of lung field; J43.8 Other emphysema; M10.9 Gout, unspecified; Z87.891 Personal history of nicotine dependence; D47.3 Essential (hemorrhagic) thrombocythemia
CPT/HCPCS: 36415; 71045; 71260; 74177; 75989; 80053; 80202; 81003; 82550; 82553; 83605; 83690; 83880; 84484; 85025; 85610; 85730; 87040; 87070; 87075; 87205; 93005; 96361; 96365; 99285; J7030